=== PATIENT | female | born 1960 | race Caucasian/White ===

== ENCOUNTER → 2017-08-09 | Outpatient (CLI) | payer OTHER, SELFPAY | PROVIDERS: Family Provider Internal Medicine Adolescent Medicine; Visit Provider Nurse Practitioner Obstetrics & Gynecology | DX: Z12.31 Encounter for screening mammogram for malignant neoplasm of breast (principal) | CPT/HCPCS: 77067; G0202 ==

== ENCOUNTER 2017-08-10 10:00 | Outpatient (RCR) | payer OTHER, SELFPAY | END 2017-08-10 23:59 | LOC: PT 10:00 | PROVIDERS: Visit Provider Internal Medicine Adolescent Medicine | DX: M54.32 Sciatica, left side (principal) | CPT/HCPCS: 97012; 97110; 97161 ==

== ENCOUNTER 2017-08-31 10:30 | Outpatient (RCR) | payer OTHER, SELFPAY | END 2017-08-31 10:35 | disposition home or self-care (01) | LOC: PT 10:30 | PROVIDERS: Visit Provider Internal Medicine Adolescent Medicine | DX: M54.32 Sciatica, left side (principal) | CPT/HCPCS: 97012; 97110; 97140 ==

== ENCOUNTER → 2017-10-30 08:22 | Outpatient (POV) | payer OTHER, SELFPAY | PROVIDERS: Family Provider Internal Medicine Adolescent Medicine; PCP Internal Medicine Adolescent Medicine; Visit Provider Physician Assistant | DX: Z00.00 Encounter for general adult medical examination without abnormal findings (principal) ==

== ENCOUNTER → 2017-12-21 08:30 | Outpatient (CLI) | payer OTHER, SELFPAY ==
[2017-12-21 12:46] LABS: Ferritin 25 ng/mL (8-388)
== END ==
PROVIDERS: Family Provider Internal Medicine Adolescent Medicine; PCP Internal Medicine Adolescent Medicine; Visit Provider Physician Assistant
DX: E83.110 Hereditary hemochromatosis (principal)
CPT/HCPCS: 82728

== ENCOUNTER → 2018-08-12 08:22 | Outpatient (CLI) | payer OTHER, SELFPAY ==
[2018-08-12 08:33] LABS: Basophils # 0.1 K/mm3 (0-0.2); Basophils % 0.8 % (0.1-2.0); Eosinophils # 0.5 K/mm3 (0.0-0.4); Eosinophils % 5.3 % (0.1-12.0); Hematocrit 42.2 % (37.0-47.0); Hemoglobin 13.7 g/dL (12.2-16.2); Lymphocytes # 3.3 K/mm3 (0.7-4.5); Lymphocytes % 38.7 % (10-50); Mean Corpuscular HGB Conc 32.6 g/dL (31.8-35.4); Mean Corpuscular Hemoglobin 29.6 pg (27.0-31.2); Mean Corpuscular Volume 90.9 fl (81-99); Monocytes # 0.5 K/mm3 (0.1-1.0); Monocytes % 5.4 % (1.7-9.3); Neutrophils # 4.3 K/mm3 (1.8-7.8); Neutrophils % 49.8 % (37.0-80.0); Platelet Count 299 K/mm3 (142-424); Red Blood Count 4.64 M/mm3 (4.20-5.40); Red Cell Distribution Width 12.7 % (11.5-17.5); White Blood Count 8.6 K/mm3 (4.8-10.8)
[2018-08-12 12:49] LABS: Alanine Aminotransferase 34 U/L (12-78); Albumin Level 3.9 gm/dL (3.4-5.0); Albumin/Globulin Ratio 1.2 (1.1-1.8); Alkaline Phosphatase 114 U/L (46-116); Anion Gap 13.4 mEq/L (5-15); Aspartate Amino Transferase 21 U/L (15-37); Bilirubin,Total 0.4 mg/dL (0.2-1.0); Blood Urea Nitrogen 14 mg/dL (7-18); Calcium 9.1 mg/dL (8.5-10.1); Carbon Dioxide 29 mmol/L (21.0-32.0); Chloride 105 mmol/L (98-107); Chol/HDL Ratio 4.4 (1-3.5); Cholesterol 154 mg/dL (140-200); Creatinine,Serum 0.81 mg/dL (0.55-1.02); Estimated Glomerular Filt Rate 73 ml/min (>60); GFR (African American) 89 ML/MIN (>60); Globulin 3.3 gm/dl (1.3-3.2); Glucose 90 mg/dL (74-106); HDL Cholesterol 35 mg/dL (29-89); LDL Cholesterol 72 mg/dL (0-130); Potassium 4.4 mmoL/L (3.5-5.1); Sodium 143 mmol/L (136-145); Thyroid Stimulating Hormone 0.42 uIU/ml (0.358-3.740); Total Protein,Serum 7.2 gm/dL (6.4-8.2); Triglycerides 236 mg/dL (30-200); VLDL Cholesterol 47 mg/dL (0-40)
== END ==
PROVIDERS: Visit Provider Internal Medicine Adolescent Medicine
DX: I25.10 Atherosclerotic heart disease of native coronary artery without angina pectoris (principal); E78.5 Hyperlipidemia, unspecified; E03.9 Hypothyroidism, unspecified
CPT/HCPCS: 36415; 80053; 80061; 84443; 85025

== ENCOUNTER → 2018-11-02 14:35 | Outpatient (CLI) | payer OTHER, SELFPAY ==
[2018-11-02 14:38] LABS: MANUAL DIFFERENTIAL MANUAL DIFFERENTIAL (MANUAL DIFF)
[2018-11-02 15:41] LABS: Basophils # 0.1 K/mm3 (0-0.2); Basophils % 1.2 % (0.1-2.0); Eosinophils # 0.4 K/mm3 (0.0-0.4); Eosinophils % 7.1 % (0.1-12.0); Hematocrit 41.8 % (37.0-47.0); Hemoglobin 14.3 g/dL (12.2-16.2); Lymphocytes # 1.2 K/mm3 (0.7-4.5); Lymphocytes % 23.8 % (10-50); Mean Corpuscular HGB Conc 34.3 g/dL (31.8-35.4); Mean Corpuscular Volume 90.3 fl (81-99); Monocytes # 0.4 K/mm3 (0.1-1.0); Monocytes % 7.7 % (1.7-9.3); Neutrophils # 3.1 K/mm3 (1.8-7.8); Neutrophils % 60.2 % (37.0-80.0); Platelet Count 235 K/mm3 (142-424); Red Blood Count 4.63 M/mm3 (4.20-5.40); Red Cell Distribution Width 12.7 % (11.5-17.5); White Blood Count 5.2 K/mm3 (4.8-10.8)
[2018-11-02 15:49] LABS: Anion Gap 12.7 mEq/L (5-15); Blood Urea Nitrogen 14 mg/dL (7-18); Calcium 9.5 mg/dL (8.5-10.1); Carbon Dioxide 28 mmol/L (21.0-32.0); Chloride 102 mmol/L (98-107); Creatinine,Serum 0.83 mg/dL (0.55-1.02); Estimated Glomerular Filt Rate 71 ml/min (>60); Free Thyroxine Index 4.1 ug/dL (5.93-13.13); GFR (African American) 86 ML/MIN (>60); Glucose 107 mg/dL (74-106); Potassium 3.7 mmoL/L (3.5-5.1); Sodium 139 mmol/L (136-145); Triiodothryronine (T3) Uptake 37 % (31-39)
[2018-11-02 17:08] LABS: Eosinophils % 7 % (0-3); Lymphocytes % 22 % (10-50); Monocytes % 7 % (2-9); Neutrophils % 64 % (42-76); Total Cells Counted 100
[2018-11-02 17:12] LABS: Platelet Estimate Normal; RBC Morphology Normal
== END ==
PROVIDERS: Visit Provider Urology
DX: R52 Pain, unspecified (principal); R53.83 Other fatigue
CPT/HCPCS: 36415; 80048; 84436; 84443; 84479; 85007; 85014; 85018; 85048; 85049

== ENCOUNTER → 2018-11-19 08:10 | Outpatient (CLI) | payer OTHER, SELFPAY ==
--- NOTE | 2018-11-19 08:13 | MM_ITS ---
MM Dig screening mamm BI w/CAD ORDERING PHYSICIAN : Cristian Mcgarry MD PATIENT AGE: 58 years GENDER: Female COMPARISON: Bilateral digital mammogram studies from: November 2014; July 2016 & 2016. Also April INDICATION: /HISTORY Routine Screening Mammogram . No hormones. No new complaints Previous cyst aspiration bilateral Family history: maternal aunt with breast cancer TECHNIQUE: Standard CC and MLO images were obtained. R2 CAD reviewed. Additional axillary cc view right breast FINDINGS: Moderate breast density with moderate residual fibroglandular-most evident distributed towards upper-outer quadrant and superior breast. Prior films are very helpful in supporting stable appearance of asymmetric areas of relative density . RIGHT BREAST: No new areas of significant concern An area of relative density at the far deep lateral right breast on initial cc view dissipates on the subsequent axillary cc view. Also note similar appearance is been seen on studies dating back to November 2014 & July 2016. MLO view appear stable. Thus overall upper this is a stable area of glandular tissue and can be followed. Follow-up in one year would be emphasized and encouraged . LEFT BREAST: No new areas of significant concern. Today's appearance & pattern changes previous studies. IMPRESSION: No new areas of significant concern. Moderate breast density When compared to multiple previous studies, areas of asymmetry appear stable. Annual Bilateral follow-up in one year should be emphasized and encouraged BI-RADS Category: 2 Benign Finding(s) RECOMMENDED FOLLOW-UP: 1YR 1 YEAR FOLLOW-UP (A letter has been sent to the patient regarding results of the study.)
== END ==
PROVIDERS: PCP Internal Medicine Adolescent Medicine; Visit Provider Nurse Practitioner Obstetrics & Gynecology
DX: Z12.31 Encounter for screening mammogram for malignant neoplasm of breast (principal)
CPT/HCPCS: 77067

== ENCOUNTER → 2019-08-12 09:30 | Outpatient (CLI) | payer OTHER, SELFPAY ==
--- NOTE | 2019-08-12 09:33 | XR_ITS ---
PROCEDURE: XR ANKLE WT BEARING LT MIN 3V CLINICAL INDICATION: pain and swelling COMPARISON: No exams were available for comparison FINDINGS: There is minor diffuse soft tissue swelling just inferior to the lateral malleolus and medial malleolus. However both medial and lateral malleolus appear intact and the ankle mortise is normal. The talus and calcaneus appear intact. IMPRESSION: Minor bilateral soft tissue swelling, no acute fracture seen Dictated by: Dr. Jesus Orta MD 08/12/2019 12:[address] Jesus Orta MD in [place] 08/12/2019 12:26
== END ==
PROVIDERS: PCP Internal Medicine Adolescent Medicine; Visit Provider Podiatrist
DX: M25.572 Pain in left ankle and joints of left foot (principal)
CPT/HCPCS: 73610

== ENCOUNTER → 2019-09-11 07:43 | Outpatient (CLI) | payer OTHER, SELFPAY ==
[2019-09-11 09:12] LABS: Alanine Aminotransferase 32 U/L (12-78); Alkaline Phosphatase 81 U/L (46-116); Anion Gap 10.8 mEq/L (5-15); Aspartate Amino Transferase 23 U/L (15-37); Bilirubin,Direct 0.1 mg/dL (0.0-0.2); Bilirubin,Indirect 0.3 mg/dL (0.0-0.9); Bilirubin,Total 0.4 mg/dL (0.2-1.0); Blood Urea Nitrogen 11 mg/dL (7-18); Calcium 9.1 mg/dL (8.5-10.1); Carbon Dioxide 31 mmol/L (21.0-32.0); Chloride 107 mmol/L (98-107); Chol/HDL Ratio 3.6 (1-3.5); Cholesterol 152 mg/dL (140-200); Creatinine,Serum 0.88 mg/dL (0.55-1.02); Estimated Glomerular Filt Rate 66 ml/min (>60); GFR (African American) 80 ML/MIN (>60); Glucose 98 mg/dL (74-106); HDL Cholesterol 42 mg/dL (29-89); LDL Cholesterol 86 mg/dL (0-130); Potassium 3.8 mmoL/L (3.5-5.1); Sodium 145 mmol/L (136-145); Total Protein,Serum 6.9 gm/dL (6.4-8.2); Triglycerides 120 mg/dL (30-200); VLDL Cholesterol 24 mg/dL (0-40)
== END ==
PROVIDERS: Visit Provider Internal Medicine Cardiovascular Disease
DX: R07.9 Chest pain, unspecified (principal); I25.10 Atherosclerotic heart disease of native coronary artery without angina pectoris; I10 Essential (primary) hypertension; E78.5 Hyperlipidemia, unspecified; Z82.49 Family history of ischemic heart disease and other diseases of the circulatory system; Z95.5 Presence of coronary angioplasty implant and graft
CPT/HCPCS: 36415; 80048; 80061; 80076

== ENCOUNTER → 2020-03-11 07:56 | Outpatient (CLI) | payer OTHER, SELFPAY ==
--- NOTE | 2020-03-11 07:59 | MM_ITS ---
PROCEDURE: MM DIG SCREENING MAMM BI W/CAD Digital Breast Tomosynthesis Included CLINICAL INDICATION: SCREENING There is a history of breast cancer in the patient's maternal aunt. There has been previous cyst aspirations on each breast with benign findings. COMPARISON: [facility] DIG MAMM-SCREEN KATARINA from 08/10/2016 [facility] DIG MAMM-SCREEN KATARINA W/CAD from 08/09/2017 [facility] MM Dig screening mamm BI w/CAD from 11/19/2018 TECHNIQUE: Standard CC and MLO images and 3D Tomosynthesis was obtained. R2 CAD reviewed. FINDINGS: Moderate diffuse fibroglandular elements are seen in the central portions of both breast and the findings are fairly symmetrical bilaterally. There are couple of benign-appearing microcalcifications in each breast. This is no suspicious lesion and no suspicious microcalcifications. IMPRESSION: Moderate breast density with no suspicious lesions seen BI-RAD Category: 2 Benign Finding(s) FOLLOW-UP: 1YR 1 Year Follow-up (A letter has been sent to the patient regarding results of the study.) Dictated by: Dr. Jesus Orta MD 03/12/2020 15:[address] Jesus Orta MD in [place] 03/12/2020 15:44
--- NOTE | 2020-03-11 08:00 | XR_ITS ---
PROCEDURE: XR DEXA AXIAL SKELETON CLINICAL INDICATION: POST MENOPAUSAL COMPARISON: No exams were available for comparison FINDINGS: Right femoral neck density is 0.700 grams/centimeters sq with a T-score of -1.3, osteopenia, Left femoral neck density is 0.642 grams/centimeters sq with T-score -1.9, osteopenia L1-L4 density is 1.070 grams/centimeters sq with T-score 0.2 IMPRESSION: Osteopenia with moderate fracture risk. Treatment advised. Suggest follow-up exam in 2 years Dictated by: Neal Ha MD 03/12/2020 07:39 Electronically signed by Neal Ha MD in [place] 03/12/2020 07:39
== END ==
PROVIDERS: PCP Internal Medicine Adolescent Medicine; Visit Provider Internal Medicine Adolescent Medicine
DX: Z12.31 Encounter for screening mammogram for malignant neoplasm of breast (principal); Z78.0 Asymptomatic menopausal state
CPT/HCPCS: 77063; 77067; 77080

== ENCOUNTER 2020-05-01 11:26 | Day surgery (SDC) | payer OTHER, SELFPAY ==
[2020-05-01] VITALS (10 sets, daily range): BP systolic 102–129; BP diastolic 59–76; PULSE 55–76; RESP 16–20; TEMP 36.6; O2SAT 91–99; BMI 28.3
--- NOTE | 2020-05-01 12:00 | IR_ITS ---
APPROVED REPORT Patient Location: [facility] Intern: MATTHEW Sorenson RT (R) PROCEDURES Left heart catheterization Left ventriculogram Selective coronary angiogram INDICATION Known coronary artery disease, Acute coronary syndrome Informed consent was obtained prior to the procedure. COMPLICATIONS NONE Estimated Blood Loss: LESS THAN 10 ML TECHNIQUE One percent lidocaine used to anesthetize the right anterior aspect of the wrist. The right radial artery was accessed via the Seldinger technique. A 6 Pashto sheath was placed in the right radial artery. 2.5 mg of verapamil, 800 mcg of nitroglycerin, 1mg Lidocaine and 5000 U Heparin were given through the arterial sheath. The trap catheter was also used to perform left heart catheterization, left ventriculogram and selective coronary angiogram. At the end of the procedure the sheath was removed good hemostasis was achieved using Traclet band, patient was transferred to the postop holding area in stable condition. ANGIOGRAPHIC RESULTS The left main artery Normal The left anterior descending artery Has proximal mild 10% luminal irregularities followed by mid vessel stent which is widely patent free of in-stent restenosis with excellent proximal distal transitioning. There is a less than 2 mm first diagonal artery which has an ostial 80% stenosis and a first septal service cashier which has an ostial 70 to 80% stenosis The circumflex artery Is a nondominant vessel and has mild diffuse 10% luminal irregularities with one 30% focal stenosis The right coronary artery Is large dominant with mild proximal mid vessel and distal 10% diffuse luminal irregularities The MONTANO ventriculogram reveals Normal 65% The left ventricular end-diastolic pressure Normal 10 mmHg IMPRESSION Widely patent mid LAD stent as described above Mild diffuse luminal irregularities as described above Severe stenoses and small less than 2 mm first diagonal artery and a moderate sized first septal service cashier both of which are not clinically amenable to intervention and best treated medically Normal ejection fraction Normal left ventricular end-diastolic pressure Identifiable large left upper lobe granuloma on fluoroscopy PLAN 1. Continue with standard therapy for ischemic heart disease 2. Patient symptoms are noncardiac in etiology 3. We will proceed with pulmonary artery CTA for possible PE 4. Follow up x-ray possible CAT scan for granulomatous disease Electronically signed by : Nas Zavaleta, 05/01/2020 12:54:29
[2020-05-01 12:44] LABS: Coronavirus 19 IgG Antibody Negative (Negative); Coronavirus 19 IgM Antibody Negative (Negative)
--- NOTE | 2020-05-01 13:53 | CT_ITS ---
PROCEDURE: CT ANGIO CHEST CLINCIAL INDICATION: abnormal ekg Pulmonary embolus evaluation, follow-up abnormal EKG COMPARISON: No exams were available for comparison TECHNIQUE: IV Contrast: 70ML OPTIRAY 350 Axial images obtained with sagittal and coronal reformats. All CT scans at the facility use one or more dose reduction, viz: automated exposure control, ma/kV adjustment per patient size (including targeted exams where dose is matched to indication, i.e. head), or iterative reconstruction technique. FINDINGS: HEART AND MEDIASTINAL STRUCTURES: There are coronary artery calcifications present. The heart size is normal. No evidence of pericardial effusion. No evidence of aortic aneurysm or dissection. No evidence of pulmonary embolus. The intraventricular septum does not appear bowed. There is narrowing of the left subclavian vein in the infraclavicular region LUNGS AND PLEURAL SPACES: There are atelectatic changes in the lower lobes. No lobar consolidation or collapse. There is evidence of old granulomatous disease. BONY STRUCTURES: No acute bony abnormalities apparent. UPPER ABDOMEN: There is mild thickening of the GE junction which could be due to nondistention or mild esophagitis. There is no significant reflux of contrast into the inferior vena cava. Patch that ADDITIONAL FINDINGS: No other significant abnormalities. IMPRESSION: 1. No evidence of pulmonary embolus. No evidence of aortic aneurysm. 2. Coronary artery calcifications are present. 3. Mild nonspecific thickening of the distal esophagus and at the GE junction which could be due to nondistention or mild esophagitis. Dictated by: Neal Ha MD 05/01/2020 14:55 Neal Ha MD in [facility] 05/01/2020 14:55
== END 2020-05-01 14:54 | disposition hospice, home (50) ==
LOC: CATHLAB 11:27
PROVIDERS: PCP Internal Medicine Adolescent Medicine; Visit Provider Internal Medicine
DX: I25.10 Atherosclerotic heart disease of native coronary artery without angina pectoris (principal); E78.2 Mixed hyperlipidemia; E83.110 Hereditary hemochromatosis; I10 Essential (primary) hypertension; R55 Syncope and collapse; R61 Generalized hyperhidrosis; Z95.5 Presence of coronary angioplasty implant and graft; E03.9 Hypothyroidism, unspecified; Z79.899 Other long term (current) drug therapy; Z79.52 Long term (current) use of systemic steroids; E78.5 Hyperlipidemia, unspecified; Z79.82 Long term (current) use of aspirin
CPT/HCPCS: 71275; 86328; 93458; 99152; C1725; C1769; J1644; J2405; Q9967

== ENCOUNTER → 2020-05-11 15:08 | Outpatient (CLI) | payer OTHER, SELFPAY ==
--- NOTE | 2020-05-11 15:09 | CA_ITS ---
APPROVED REPORT EXAM: Comprehensive 2D, Doppler, and color-flow Echocardiogram Army Ranger: Adia Cameron RDCS Ht: 5 ft 5 in Wt: 175lbs BSA: 1.87 BP: 116/71 mmHg Indications: NEAR SYNCOPE,CP,CAD,HTN,HLP 2D Dimensions LVOT 1.70 cm (M/F) 1.5-2.5 M-Mode Dimensions RVDd 3.52 cm (0.9-2.6) LVDd 4.54 cm (3.5-5.7) LVDs 3.44 cm (3.5-5.7) IVSd 0.59 cm (0.6-1.1) PWd 0.72 cm (0.6-1.1) EF (Teich) 48.30% FS 24.20% EDV (Teich) 94.40 mL ESV (Teich) 48.80 mL LV Diastology E/A Ratio 0.99 Mitral Valve MV A Velocity 54.00 (40-130 cm/s) Left Ventricle Left atrium is mildly enlarged, left ventricle is normal size, mild concentric left ventricular hypertrophy, visually estimated ejection fraction 55% with no regional wall motion abnormality, diastolic parameters are inconclusive. Right Ventricle Right atrium is normal size, right ventricle is mildly enlarged with normal contractility. Aortic Valve Aortic valve is minimally thickened and fibrosed, there is no aortic stenosis or aortic insufficiency. Mitral Valve Mitral valve is grossly normal, there is mild mitral regurgitation. Tricuspid Valve Tricuspid valve grossly normal, there is mild tricuspid regurgitation, tricuspid regurgitation jet velocity is inadequate for calculation of the right ventricular systolic pressure. Pulmonic Valve Pulmonic valve is poorly visualized. Great Vessels Aortic root is normal size. Pericardium No significant pericardial effusion noted. Conclusion 1. Mildly enlarged left atrium, normal left ventricular size, mild concentric left ventricular hypertrophy, visually estimated ejection fraction 55% with no regional wall motion abnormality, diastolic parameters are inconclusive. 2. Qualitatively mildly enlarged right ventricle with normal contractility. 3. Mild mitral and tricuspid regurgitation. 4. No significant pericardial effusion noted. Electronically signed by : Osmany Rojas, 05/11/2020 18:22:35
== END ==
PROVIDERS: PCP Internal Medicine Adolescent Medicine; Visit Provider Internal Medicine Cardiovascular Disease
DX: I25.10 Atherosclerotic heart disease of native coronary artery without angina pectoris (principal); R55 Syncope and collapse; R94.31 Abnormal electrocardiogram [ECG] [EKG]; E78.5 Hyperlipidemia, unspecified; I10 Essential (primary) hypertension; R61 Generalized hyperhidrosis
CPT/HCPCS: 93306

== ENCOUNTER → 2020-08-17 13:33 | Outpatient (CLI) | payer OTHER, SELFPAY ==
[2020-08-17 14:57] LABS: Troponin I < 0.01 ng/ml (0.00-0.034)
== END ==
PROVIDERS: Visit Provider Internal Medicine
DX: R07.9 Chest pain, unspecified (principal)
CPT/HCPCS: 36415; 84484

== ENCOUNTER → 2021-05-26 07:02 | Outpatient (CLI) | payer OTHER, SELFPAY ==
--- NOTE | 2021-05-26 | CA_ITS ---
APPROVED REPORT Exam: Exercise Treadmill Technologist: Shelbi Sesay Ht: 5 ft 5 in Wt: 187 lbs BSA: 1.92 m2 HR: 83 bpm BP: 143/86 mmHg Indications: SOA Medical History Medications: Omeprazole,,,,, Levothyroxine,,,,, Asa,,,,, Metoprolol Succinate,,,,, RoSUVASTATIN,,,,, Alendronate,,,,, Stress Test Details Test: Finesse HR Resting HR: 85 bpm Max Heart Rate (APMHR): 162.099269 bpm Max HR Achieved: 171 bpm Target HR (85% APMHR): 137.799400 bpm % of APMHR: 105.56 Recovery HR: 112 bpm BP Max BP: 180.0/70.0 mmHg Recovery BP: 135.0/84.0 mmHg ECG Resting ECG: Normal sinus rhythm, PVC Clinical Exercise duration: 10:01 min Highest Stage Achieved: Exercise capacity: 12.8 METs Stress ECG Conclusion Patient exercised 10:01 on Finesse Protocol. Test stopped due to shortness of air, fatigue. Symptoms: Dyspnea. No chest pain. Arrhythmias/Ectopy: None ST-T Changes: NS T wave changes in lead III, within normal ST response to exercise. Conclusion: Normal GXT. Myoview images reported separately. Test Summary Stage 3 02:00 14.0 3.4 158 . . . . REST 04:43 0.0 0.0 85 . . . . Stage 1 01:00 10.0 1.7 103 . . . . Stage 1 02:00 10.0 1.7 107 . . . . Stage 1 03:00 10.0 1.7 109 . 170/ 74 . . Stage 2 01:00 12.0 2.5 119 . . . . Stage 2 02:00 12.0 2.5 130 . . . . Stage 2 03:00 12.0 2.5 135 . 180/ 70 . . Stage 3 01:00 14.0 3.4 152 . . . . Stage 3 02:00 14.0 3.4 158 . . . . Stage 3 03:00 14.0 3.4 164 . 176/ 70 . . Stage 4 01:00 16.0 4.2 171 . . . . Stage 4 01:01 16.0 4.2 171 . . . Stop exercise at 10:01 RECOVERY 01:00 0.0 0.0 158 . . . . RECOVERY 02:00 0.0 0.0 136 . . . . RECOVERY 03:00 0.0 0.0 122 . . . . RECOVERY 04:00 0.0 0.0 115 . . . . RECOVERY 05:00 0.0 0.0 109 . 135/ 84 . . RECOVERY 05:26 0.0 0.0 110 . 135/ 84 . . Electronically signed by : Osmany Rojas MD 05/27/2021 10:54:05
--- NOTE | 2021-05-26 07:03 | NM_ITS ---
APPROVED REPORT Exam: Nuclear Stress Test Indication: CAD, 1 STENT, HTN, HYPERLIPIDEMIA, FM HX., SOB Patient Location: Outpatient Stress Tech: Shelbi Sesay [place] Tech:Rachel Amos, ARRT, RT (R)(N) Ht: 5 ft 5 in Wt: 175 lbs Bra Size: 40C HR: 83 bpm BP: 156/78 mmHg BSA: 1.87 m2 BMI: 29.1 History: CAD, 1 STENT, HTN, HYPERLIPIDEMIA, FM HX., SOB Procedure: Patient exercised on Finesse protocol 10:01 minutes and sec, resting heart rate 83 bpm, resting blood pressure 156/78 mmHg, with exercise maximum heart rate achived was 171 bpm which is 106 % of the maximum predicted heart rate and blood pressure was 176/70 mmHg. Test was stopped due to SOB. Patient denied any complaint of chest pain. Patient has good exercise capacity, achieved 12.8 METs of workload on treadmill, the blood pressure response to exercise was Adequate. Electrocardiogram Resting electrocardiogram showed sinus rhythm, with exercise there is less than 1.[address] segment depression noted from the baseline EKG. The EKG portion of the exercise Myoview is negative for ischemia. Cardiac Stress and Resting SPECT Images: Cardiac Stress and Resting SPECT images were obtained using technetium 99m Myoview 32.1 mCi stress and 10.05 mCi at rest. Gated SPECT for analysis of segmental wall motion and calculation of the ejection fraction also done, prone images were also obtained. Cardiac stress and resting SPECT images show uniform myocardial activity without segmental perfusion abnormality, computer derived ejection fraction is 57% with no regional wall motion abnormality, right ventricle is normal size and contractility. Conclusion: 1. The EKG portion of the exercise Myoview is negative for ischemia, patient has good exercise capacity achieved 12.8 mets of workload on treadmill, the blood pressure response to exercise was adequate, there was no exercise-induced chest discomfort, test was stopped due to shortness of breath. 2. No scintigraphic evidence of reversible ischemia seen, computer derived ejection fraction is 57% with no regional wall motion abnormality, right ventricle is normal size and contractility. 3. Normal exercise Myoview study. Electronically signed by : Osmany Rojas MD 05/27/2021 11:01:02
--- NOTE | 2021-05-26 07:19 | CA_ITS ---
APPROVED REPORT EXAM: Comprehensive 2D, Doppler, and color-flow Echocardiogram Wrapper Off: Brittany Reid RT(R) Ht: 5 ft 6 in Wt: 180lbs BSA: 1.91 BP: 122/78 mmHg Indications: dyspnea, ex smoker, GRUBBS, hyperlipidemia, CAD, asthma 2D Dimensions LVOT 2.02 cm (M/F) 1.5-2.5 M-Mode Dimensions RVDd 3.00 cm (0.9-2.6) LA Diam 3.52 cm (1.9-4.0) LVDd 3.93 cm (3.5-5.7) Ao Diam 2.69 cm (2.0-3.7) LVDs 2.83 cm (3.5-5.7) IVSd 0.68 cm (0.6-1.1) PWd 0.57 cm (0.6-1.1) EF (Teich) 54.80% FS 28.00% EDV (Teich) 67.10 mL ESV (Teich) 30.30 mL LV Diastology E Decel Time 117.00 (160-240 msec) E/A Ratio 0.6 MED E' 9.20 (< 7 cm/sec) E'/MED E' Ratio 6.38 (>14) LAT E' 11.00 (<10 cm/sec) E/LAT E' Ratio 5.34 (>14) Mitral Valve MV E Max Oscar. 59.00 (40-130 cm/s) MV A Velocity 95.00 (40-130 cm/s) E/A Ratio 0.62 MV Decel. Time 117.00 (160-240 ms) MV PHT 34.00 ms Left Ventricle Left atrium is qualitatively mildly enlarged, left ventricle is normal size, mild concentric left ventricular hypertrophy, visually estimated ejection fraction 55% with no regional wall motion abnormality, grade 1 diastolic dysfunction seen without tissue Doppler evidence of raise left atrial pressure. Right Ventricle Right atrium and right ventricle are mildly enlarged with normal contractility. Aortic Valve Aortic valve is minimally thickened and fibrosed, there is no aortic stenosis or aortic insufficiency. Mitral Valve Mitral valve is grossly normal, there is trace mitral regurgitation. Tricuspid Valve Tricuspid valve grossly normal, there is trace tricuspid regurgitation, tricuspid regurgitation jet velocity is inadequate for calculation of the right ventricular systolic pressure. Pulmonic Valve Pulmonic valve is poorly visualized. Great Vessels Aortic root is normal size. Inferior vena cava is normal size with normal inspiratory collapse. Pericardium No significant pericardial effusion noted. Conclusion 1. Mild biatrial enlargement, normal left ventricular size, mild concentric left ventricular hypertrophy, visually estimated ejection fraction 55% with no regional wall motion abnormality, grade 1 diastolic dysfunction seen without tissue Doppler evidence of raise left atrial pressure. 2. Mildly enlarged right ventricle with normal contractility. 3. Trace mitral and tricuspid regurgitation. 4. No significant pericardial effusion noted. 5. Inferior vena cava is normal size with normal inspiratory collapse. Electronically signed by : Osmany Rojas MD 05/27/2021 12:13:22
[2021-05-26 07:37] LABS: Basophils # 0.1 K/mm3 (0-0.2); Basophils % 1.1 % (0.1-2.0); Eosinophils # 0.4 K/mm3 (0.0-0.4); Hematocrit 40.3 % (37.0-47.0); Hemoglobin 12.6 g/dL (12.2-16.2); Lymphocytes # 3.1 K/mm3 (0.7-4.5); Lymphocytes % 36.5 % (10-50); Mean Corpuscular HGB Conc 31.3 g/dL (31.8-35.4); Mean Corpuscular Hemoglobin 27.4 pg (27.0-31.2); Mean Corpuscular Volume 87.5 fl (81-99); Mean Platelet Volume 8.1 fl (7.4-10.4); Monocytes # 0.5 K/mm3 (0.1-1.0); Monocytes % 6.2 % (1.7-9.3); Neutrophils # 4.3 K/mm3 (1.8-7.8); Neutrophils % 51.2 % (37.0-80.0); Platelet Count 331 K/mm3 (142-424); Red Cell Distribution Width 14.1 % (11.5-17.5); White Blood Count 8.4 K/mm3 (4.8-10.8)
--- NOTE | 2021-05-26 08:35 | HMH.ITSHM ---
Current Home Medications as stated by this patient Salena Trinh or corporate representative. []ROSUVASTATIN OMEPRAZOLE METOPROLOL LOSARTAN LEVOTHYROXINE LEVOCETIRIZINE IBUPROFEN FLUTICASONE ASA ALENDRONATE FAMOTIDINE
[2021-05-26 08:55] LABS: Chloride 106 mmol/L (98-107)
[2021-05-26 08:56] LABS: Potassium 4.4 mmoL/L (3.5-5.1); Sodium 140 mmol/L (136-145)
[2021-05-26 08:58] LABS: Alanine Aminotransferase 33 U/L (12-78); Anion Gap 11.4 mEq/L (5-15); Aspartate Amino Transferase 39 U/L (14-36); Blood Urea Nitrogen 14 mg/dl (7-17); Carbon Dioxide 27 mmol/L (22.0-30.0); Estimated Glomerular Filt Rate 86 ml/min (>60); GFR (African American) 104 ML/MIN (>60)
[2021-05-26 08:59] LABS: Albumin Level 4.3 g/dl (3.5-5.0); Alkaline Phosphatase 95 U/L (38-126); Bilirubin,Direct 0.3 mg/dl (0.0-0.4); Bilirubin,Total 0.3 mg/dl (0.2-1.3); Calcium 9.5 mg/dl (8.4-10.2); Chol/HDL Ratio 3.4 (1-3.5); Cholesterol 146 mg/dl (140-200); Glucose 124 mg/dl (74-100); HDL Cholesterol 43 mg/dl (40-60); Total Protein,Serum 7.2 g/dl (6.3-8.2); Triglycerides 163 mg/dl (30-150); VLDL Cholesterol 33 mg/dL (0-40)
[2021-05-26 09:10] LABS: Direct LDL Cholesterol 73.18 mg/dL (100-129)
[2021-05-26 09:16] LABS: Free T4 (Free Thyroxine) 1.34 ng/dl (0.78-2.19)
--- NOTE | 2021-05-26 09:25 | MM_ITS ---
PROCEDURE INFORMATION: Exam: MG Bilateral Screening 3D Mammography Exam date and time: 05/26/2021 9:25 AM Age: 60 years old Clinical indication: Screening mammogram TECHNIQUE: Imaging protocol: Bilateral screening tomosynthesis and 2D mammography including computer-aided detection (CAD) when performed. COMPARISON: 03/11/2020, 11/19/2018, 08/09/2017, 08/10/2016 FINDINGS: MAMMOGRAPHY: Breast composition: The breast tissue is heterogeneously dense, which may obscure small masses. Mass: None. Architectural distortion: No new or suspicious architectural distortion. Calcifications: No new or suspicious calcifications are present Asymmetric density: No new or suspicious asymmetric density is present Skin thickening: None. Axillary adenopathy: None. IMPRESSION: No mammographic evidence of malignancy. Recommend annual screening mammography unless otherwise clinically indicated. ASSESSMENT: BI-RADS category 1: Negative
[2021-05-26 09:30] LABS: Thyroid Stimulating Hormone 2.21 uIU/mL (0.465-4.68)
== END ==
PROVIDERS: PCP Internal Medicine Adolescent Medicine; Visit Provider Physician Assistant
DX: R06.00 Dyspnea, unspecified (principal); I25.10 Atherosclerotic heart disease of native coronary artery without angina pectoris; I50.9 Heart failure, unspecified; I11.0 Hypertensive heart disease with heart failure; E78.5 Hyperlipidemia, unspecified; E11.9 Type 2 diabetes mellitus without complications; I63.9 Cerebral infarction, unspecified; Z12.31 Encounter for screening mammogram for malignant neoplasm of breast; Z95.5 Presence of coronary angioplasty implant and graft; Z82.49 Family history of ischemic heart disease and other diseases of the circulatory system; Z87.891 Personal history of nicotine dependence
CPT/HCPCS: 36415; 77063; 77067; 78452; 80048; 80061; 80076; 83880; 84439; 84443; 85025; 93017; 93306; A9502

== ENCOUNTER → 2021-08-23 14:37 | Outpatient (CLI) | payer OTHER, SELFPAY ==
[2021-08-23 16:37] VITALS: PULSE 80
== END ==
PROVIDERS: PCP Internal Medicine Adolescent Medicine; Visit Provider Internal Medicine Adolescent Medicine
DX: R06.09 Other forms of dyspnea (principal)
CPT/HCPCS: 94060; 94640

== ENCOUNTER → 2021-11-11 08:01 | Outpatient (CLI) | payer OTHER, SELFPAY ==
--- NOTE | 2021-11-11 08:15 | US_ITS ---
FINAL REPORT CLINICAL HISTORY: RIGHT UPPER QUADRANT ABD. PAIN FINDINGS: RIGHT UPPER QUADRANT ULTRASOUND: Ultrasound images of right upper quadrant were obtained. Limited images of the pancreas are obscured by bowel gas. There is fatty infiltration of the liver. There is a small amount of sludge in the gallbladder. The common duct measures 2 mm. Limited images of right kidney are unremarkable. IMPRESSION: Fatty liver. Small amount of sludge in the gallbladder. Reviewed, Interpreted and Dictated by Rancho Oliver III, MD Transcribed by Sharmin Luna Authenticated by Rancho Oliver III, MD on 11/11/2021 10:15:33 AM [facility]
[2021-11-11 09:56] LABS: Chloride 105 mmol/L (98-107); Sodium 141 mmol/L (136-145)
[2021-11-11 09:57] LABS: Potassium 4.3 mmoL/L (3.5-5.1)
[2021-11-11 09:59] LABS: Alanine Aminotransferase 28 U/L (12-78); Alkaline Phosphatase 96 U/L (38-126); Anion Gap 11.3 mEq/L (5-15); Aspartate Amino Transferase 38 U/L (14-36); Bilirubin,Total 0.7 mg/dl (0.2-1.3); Blood Urea Nitrogen 16 mg/dl (7-17); Calcium 9.3 mg/dl (8.4-10.2); Carbon Dioxide 29 mmol/L (22.0-30.0); Estimated Glomerular Filt Rate 73 ml/min (>60); GFR (African American) 89 ML/MIN (>60); Glucose 90 mg/dl (74-100); Lipase 66 U/L (23-300)
[2021-11-11 10:00] LABS: Albumin Level 4.6 g/dl (3.5-5.0); Albumin/Globulin Ratio 1.7 (1.1-1.8); Globulin 2.7 g/dL (1.3-3.2); Total Protein,Serum 7.3 g/dl (6.3-8.2)
== END ==
PROVIDERS: PCP Internal Medicine Adolescent Medicine; Visit Provider Internal Medicine Adolescent Medicine
DX: R10.11 Right upper quadrant pain (principal)
CPT/HCPCS: 36415; 76705; 80053; 83690

== ENCOUNTER 2022-01-01 14:25 | Emergency (ER) | payer OTHER, SELFPAY ==
--- NOTE | 2022-01-01 14:56 | HMH.EDUTC ---
[facility] [place] Disposition Clinical Impression: Acute bronchitis Qualifiers: Bronchitis organism: unspecified organism Qualified Code(s): J20.9 - Acute bronchitis, unspecified Disposition: Home, Self-Care Condition on Discharge: Good Instructions: Acute Bronchitis, DI for Acute Bronchitis Additional Instructions: Drink plenty of fluids. Take tylenol or ibuprofen for pain or fever. Take the medications as directed. Follow up with your regular doctor. GO TO THE ER FOR ANY WORSENING SYMPTOMS Don't start the oral steroids until tomorrow, since you had the shot here today. The cough medication (promethazine dm) will make you drowsy, so don't drive or operate heavy machinery after taking it. Prescriptions: methylPREDNISolone [Medrol] 4 mg PO DIRECTED 6 Days #21 packet Transmission Status: Received by [employer] guaiFENesin [Mucinex 600mg tablet] 1 - 2 tab PO BIDP PRN #30 tab PRN Reason: Congestion Transmission Status: Received by [employer] Azithromycin [Z-Travis 250mg Tab*] 250 mg PO UD DOSE PK #6 tab Transmission Status: Received by [employer] Referrals: Bharat Clinton MD [Primary Care Provider] - Medical Decision Making - Medical Records Medical records reviewed: No: I reviewed the patient's medical records. - Bruce Inquiry Pt receiving controlled substance: No Vital Signs: 01/01/22 14:57 01/01/22 16:14 Temperature 98.1 F 98.1 F Temperature Source Oral Pulse Rate 98 H Pulse Rate [Left Radial] 98 H Respiratory Rate 19 19 Blood Pressure 134/85 Blood Pressure [Right Arm] 134/85 Blood Pressure Mean [Right Arm] 101 02 Sat by Pulse Oximetry 99 - Lab Data Lab results reviewed: Yes: I reviewed the patient's lab results. Orders (Tests/Meds): ED MEDICATIONS Discontinued Medications Generic Name Dose Route Start Last Admin Trade Name Freq PRN Reason Stop Dose Admin Ceftriaxone Sodium 1 gm 01/01/22 15:38 01/01/22 15:48 Ceftriaxone 1gm Vial IM 01/01/22 15:39 1 gm ONCE ONE Administration Lidocaine HCl 0 ml 01/01/22 15:38 01/01/22 15:48 Lidocaine 1% 5ml Pf Vial IM 01/01/22 15:39 2 ml ONCE ONE Administration Methylprednisolone Sodium Succinate 125 mg 01/01/22 15:38 01/01/22 15:49 Methylprednisolone Sod Succ 125mg Vial IM 01/01/22 15:39 125 mg ONCE ONE Administration [facility] [place] HPI - General Stated complaint: cough, congestion, weakness Time Seen by Provider: 01/01/22 14:56 - History of Present Illness Provider Complaint: She states that for the past 4 days she has been having a cough and chest congestion. She has history of asthma. She denies any shortness of breath. - Related Data Home Medications Medication Instructions Recorded Confirmed aspirin 81 mg tablet,delayed 81 mg PO DAILY tab 10/09/17 03/25/21 release fluticasone furoate 100 1 inh INHALATION DAILY PRN each 10/09/17 03/25/21 mcg-vilanterol 25 mcg/dose inhalation powder levothyroxine 88 mcg tablet 88 mcg PO DAILY 11/29/18 03/25/21 Famotidine [Acid Clinical Professor] 20 mg PO DAILY 05/01/20 03/25/21 ibuprofen 800 mg-famotidine 26.6 1 tab PO TID PRN 05/01/20 03/25/21 mg tablet levocetirizine 5 mg tablet 5 mg PO DAILY tab 05/01/20 03/25/21 alendronate 35 mg tablet 35 mg PO tab 03/25/21 03/25/21 omeprazole 20 mg capsule,delayed 20 mg PO cap 03/25/21 03/25/21 release Previous Rx's Medication Instructions Recorded diclofenac sodium 1 % topical gel 4 g TOPICAL QID PRN #100 g 10/04/19 rosuvastatin 20 mg tablet See Rx Instructions .ROUTE 08/23/21 .COMPLEX #90 tab losartan 50 mg tablet See Rx Instructions .ROUTE 09/08/21 .COMPLEX #90 tablet metoprolol succinate 25 mg See Rx Instructions .ROUTE 10/20/21 tablet,extended release 24 hr .COMPLEX #90 tab Azithromycin [Z-Travis 250mg Tab*] 250 mg PO UD DOSE PK #6 tab 01/01/22 guaiFENesin [Mucinex 600mg tablet] 1 - 2 tab PO BIDP PRN #30 tab 01/01/22 methylPREDNISolone [Medrol] 4 mg PO DI
[2022-01-01 14:57] VITALS: BP 134/85; PULSE 98; RESP 19; TEMP 36.7; O2SAT 99; BMI 29.0
--- NOTE | 2022-01-01 15:19 | XR_ITS ---
PROCEDURE INFORMATION: Exam: XR Chest Exam date and time: 01/01/2022 3:16 PM Age: 61 years old Clinical indication: Cough and shortness of breath; Additional info: Cough, congestion TECHNIQUE: Imaging protocol: XR of the chest. Views: 2 views. COMPARISON: CT ANGIO CHEST 05/01/2020 2:24 PM FINDINGS: Lungs: Calcified granuloma left upper lobe. Calcified hilar lymph nodes also demonstrated. Pleural spaces: Unremarkable. No pleural effusion. No pneumothorax. Heart/Mediastinum: Unremarkable. No cardiomegaly. Bones/joints: Unremarkable. IMPRESSION: 1. No evidence of acute cardiopulmonary disease. 2. Evidence of prior granulomatous disease.
[2022-01-01 16:14] VITALS: BP 134/85; PULSE 98; RESP 19; TEMP 36.7
== END 2022-01-01 16:15 | disposition home or self-care (01) ==
PROVIDERS: Emergency Provider Nurse Practitioner Family; PCP Internal Medicine Adolescent Medicine
DX: J02.9 Acute pharyngitis, unspecified (principal); R53.1 Weakness; I25.10 Atherosclerotic heart disease of native coronary artery without angina pectoris; E78.5 Hyperlipidemia, unspecified; E03.9 Hypothyroidism, unspecified; J45.909 Unspecified asthma, uncomplicated; Z79.1 Long term (current) use of non-steroidal anti-inflammatories (NSAID); Z79.51 Long term (current) use of inhaled steroids; Z79.52 Long term (current) use of systemic steroids; Z79.82 Long term (current) use of aspirin; Z79.899 Other long term (current) drug therapy; Z88.8 Allergy status to other drugs, medicaments and biological substances; Z82.49 Family history of ischemic heart disease and other diseases of the circulatory system; Z83.438 Family history of other disorder of lipoprotein metabolism and other lipidemia; Z80.9 Family history of malignant neoplasm, unspecified; Z87.891 Personal history of nicotine dependence
CPT/HCPCS: 71046; 96372; 99213; G0463; J0696

== ENCOUNTER → 2022-06-15 08:08 | Outpatient (CLI) | payer OTHER, SELFPAY ==
--- NOTE | 2022-06-15 08:13 | XR_ITS ---
FINAL REPORT TECHNIQUE: Bone densitometry calculations of the lumbar spine and hip were obtained. CLINICAL HISTORY: screening COMPARISON: March 11, 2020 FINDINGS: DEXA BONE DENSITY AXIAL SKELETON Using L1-4, the bone mineral density of the spine is 1.081 g/cm2, corresponding to T-score of 0.3. Previously measured 1.070 g/cm2, corresponding to T-score of 0.2. Using the left hip, the bone mineral density of the femoral neck is 0.652 g/cm2, corresponding to a T-score of -1.8. Previously measured 0.642 g/cm2, corresponding to T-score of -1.9. NOTE: T-score: Standard deviation compared with peak bone mass of young adult mean. *Following the recommendations of the International Society of Bone densitometry, classification of hip BMD is based on the lower of two T-scores; total hip or femoral neck. IMPRESSION: Diminished bone mineral density of the lumbar spine and left hip consistent with osteopenia. FRAX not reported because patient is being treated for osteoporosis. Reviewed, Interpreted and Dictated by Rancho Oliver III, MD Transcribed by Pam Hendrix Authenticated and [facility]
--- NOTE | 2022-06-15 08:13 | MM_ITS ---
PROCEDURE INFORMATION: Exam: MG Bilateral Screening 3D Mammography Exam date and time: 06/15/2022 8:17 AM Age: 61 years old Clinical indication: Screening mammogram TECHNIQUE: Imaging protocol: Bilateral Screening tomosynthesis and 2D mammography including computer-aided detection (CAD) when performed. COMPARISON: 1. MG MM DIG SCREENING MAMM BI W/CAD 05/26/2021 9:31 AM 2. MG MM DIG SCREENING MAMM BI W/CAD 03/11/2020 8:18 AM 3. MG SCBI MM Dig screening mamm BI w/CAD 11/19/2018 8:28 AM 4. MG DMSB DIG MAMM-SCREEN KATARINA W/CAD 08/09/2017 1:08 PM FINDINGS: MAMMOGRAPHY: Breast composition: The breast is heterogeneously dense, which may obscure small masses. Mass: None. Architectural distortion: No new or suspicious architectural distortion. Calcifications: No new or suspicious calcifications are present Asymmetric density: No new or suspicious asymmetric density is present Skin thickening: None. Axillary adenopathy: None. IMPRESSION: No mammographic evidence of malignancy. Recommend annual screening mammography unless otherwise clinically indicated. ASSESSMENT: BI-RADS category 1: Negative
== END ==
PROVIDERS: PCP Internal Medicine Adolescent Medicine; Visit Provider Internal Medicine Adolescent Medicine
DX: Z12.31 Encounter for screening mammogram for malignant neoplasm of breast (principal); Z13.820 Encounter for screening for osteoporosis; Z78.0 Asymptomatic menopausal state
CPT/HCPCS: 77063; 77067; 77080

== ENCOUNTER → 2022-07-15 07:48 | Outpatient (CLI) | payer OTHER, SELFPAY ==
[2022-07-15 08:06] LABS: Basophils # 0.1 K/mm3 (0-0.2); Basophils % 1.6 % (0.1-2.0); Eosinophils # 0.4 K/mm3 (0.0-0.4); Eosinophils % 4.8 % (0.1-12.0); Hematocrit 43.1 % (37.0-47.0); Hemoglobin 14.4 g/dL (12.2-16.2); Lymphocytes # 2.6 K/mm3 (0.7-4.5); Lymphocytes % 35.6 % (10-50); Mean Corpuscular HGB Conc 33.3 g/dL (31.8-35.4); Mean Corpuscular Hemoglobin 30.7 pg (27.0-31.2); Mean Platelet Volume 8.6 fl (7.4-10.4); Monocytes # 0.4 K/mm3 (0.1-1.0); Monocytes % 5.4 % (1.7-9.3); Neutrophils # 3.8 K/mm3 (1.8-7.8); Neutrophils % 52.5 % (37.0-80.0); Platelet Count 267 K/mm3 (142-424); Red Blood Count 4.68 M/mm3 (4.20-5.40); Red Cell Distribution Width 13.4 % (11.5-17.5); White Blood Count 7.3 K/mm3 (4.8-10.8)
[2022-07-15 08:42] LABS: Alanine Aminotransferase 33 U/L (12-78); Albumin Level 4.5 g/dl (3.5-5.0); Albumin/Globulin Ratio 1.7 (1.1-1.8); Alkaline Phosphatase 103 U/L (38-126); Aspartate Amino Transferase 58 U/L (14-36); Bilirubin,Total 0.6 mg/dl (0.2-1.3); Blood Urea Nitrogen 18 mg/dl (7-17); Calcium 9.9 mg/dl (8.4-10.2); Carbon Dioxide 30 mmol/L (22.0-30.0); Chloride 106 mmol/L (98-107); Chol/HDL Ratio 3.3 (1-3.5); Cholesterol 128 mg/dl (140-200); Estimated Glomerular Filt Rate 64 ml/min (>60); GFR (African American) 78 ML/MIN (>60); Globulin 2.6 g/dL (1.3-3.2); Glucose 103 mg/dl (74-100); HDL Cholesterol 39 mg/dl (40-60); Magnesium 1.9 mg/dl (1.6-2.3); Sodium 143 mmol/L (136-145); Total Protein,Serum 7.1 g/dl (6.3-8.2); Triglycerides 137 mg/dl (30-150); VLDL Cholesterol 27 mg/dL (0-40)
[2022-07-15 08:53] LABS: Direct LDL Cholesterol 60.99 mg/dL (100-129)
[2022-07-15 09:14] LABS: Thyroid Stimulating Hormone 1.88 uIU/mL (0.465-4.68)
== END ==
PROVIDERS: PCP Internal Medicine Adolescent Medicine; Visit Provider Internal Medicine Adolescent Medicine
DX: R42 Dizziness and giddiness (principal); I25.10 Atherosclerotic heart disease of native coronary artery without angina pectoris; E78.5 Hyperlipidemia, unspecified; E03.9 Hypothyroidism, unspecified
CPT/HCPCS: 36415; 80053; 80061; 83735; 84443; 85025

== ENCOUNTER → 2023-03-06 07:49 | Outpatient (CLI) | payer OTHER, SELFPAY ==
[2023-03-06 08:04] LABS: Basophils # 0.1 K/mm3 (0-0.2); Basophils % 1.3 % (0.1-2.0); Eosinophils # 0.5 K/mm3 (0.0-0.4); Eosinophils % 6.6 % (0.1-12.0); Hematocrit 42.8 % (37.0-47.0); Hemoglobin 14.1 g/dL (12.2-16.2); Lymphocytes # 2.6 K/mm3 (0.7-4.5); Lymphocytes % 34.7 % (10-50); Mean Corpuscular HGB Conc 32.9 g/dL (31.8-35.4); Mean Corpuscular Hemoglobin 30.7 pg (27.0-31.2); Mean Corpuscular Volume 93.3 fl (81-99); Mean Platelet Volume 8.4 fl (7.4-10.4); Monocytes # 0.5 K/mm3 (0.1-1.0); Monocytes % 6.3 % (1.7-9.3); Neutrophils # 3.8 K/mm3 (1.8-7.8); Platelet Count 252 K/mm3 (142-424); Red Blood Count 4.59 M/mm3 (4.20-5.40); White Blood Count 7.5 K/mm3 (4.8-10.8)
[2023-03-06 09:07] LABS: Chloride 107 mmol/L (98-107); Potassium 4.5 mmoL/L (3.5-5.1); Sodium 143 mmol/L (136-145)
[2023-03-06 09:09] LABS: Alanine Aminotransferase 27 U/L (12-78); Aspartate Amino Transferase 37 U/L (14-36); Blood Urea Nitrogen 18 mg/dl (7-17); Estimated Glomerular Filt Rate 73 ml/min (>60); GFR (African American) 89 ML/MIN (>60)
[2023-03-06 09:10] LABS: Albumin Level 4.3 g/dl (3.5-5.0); Albumin/Globulin Ratio 1.5 (1.1-1.8); Alkaline Phosphatase 96 U/L (38-126); Anion Gap 14.5 mEq/L (5-15); Bilirubin,Total 0.5 mg/dl (0.2-1.3); Calcium 9.9 mg/dl (8.4-10.2); Carbon Dioxide 26 mmol/L (22.0-30.0); Chol/HDL Ratio 3.5 (1-3.5); Cholesterol 152 mg/dl (140-200); Globulin 2.8 g/dL (1.3-3.2); Glucose 106 mg/dl (74-100); HDL Cholesterol 43 mg/dl (40-60); Total Protein,Serum 7.1 g/dl (6.3-8.2); Triglycerides 157 mg/dl (30-150); VLDL Cholesterol 31 mg/dL (0-40)
[2023-03-06 09:17] LABS: 25-OH Vitamin D, Total 39.7 ng/mL (30-100)
[2023-03-06 09:21] LABS: Direct LDL Cholesterol 79.88 mg/dL (100-129)
[2023-03-06 09:40] LABS: Thyroid Stimulating Hormone 2.53 uIU/mL (0.465-4.68)
== END ==
PROVIDERS: PCP Internal Medicine Adolescent Medicine; Visit Provider Internal Medicine Adolescent Medicine
DX: Z00.00 Encounter for general adult medical examination without abnormal findings (principal); I25.10 Atherosclerotic heart disease of native coronary artery without angina pectoris; J45.30 Mild persistent asthma, uncomplicated; E03.9 Hypothyroidism, unspecified; E78.5 Hyperlipidemia, unspecified; M85.89 Other specified disorders of bone density and structure, multiple sites
CPT/HCPCS: 36415; 80053; 80061; 82306; 84443; 85025

== ENCOUNTER 2023-03-23 08:36 | Emergency (ER) | payer OTHER, SELFPAY ==
[2023-03-23 08:37] VITALS: BP 123/79; PULSE 61; RESP 16; TEMP 36.7; O2SAT 100; BMI 29.1
--- NOTE | 2023-03-23 08:45 | EXP.UTC ---
Discharge Plan Disposition Patient Disposition: Home, Self-Care Condition: Good Prescriptions Prescriptions: New benzonatate 100 mg capsule 100 mg PO TID PRN (Reason: cough) Qty: 30 0RF methylprednisolone [Medrol (Travis)] 4 mg tablets,dose pack See Rx Instructions .Route .COMPLEX 6 Days Qty: 21 0RF Rx Instructions: taper pack; amoxicillin-pot clavulanate 875-125 mg Tablet 1 tab PO Q12H Qty: 20 0RF No Action alendronate 35 mg tablet 35 mg PO omeprazole 20 mg capsule,delayed release(DR/EC) 20 mg PO Patient Comments: TAKE ONE CAPSULE BY MOUTH EVERY DAY aspirin 81 mg tablet,delayed release (DR/EC) 81 mg PO DAILY fluticasone furoate-vilanterol [Breo Ellipta] 100-25 mcg/dose blister with device 1 inh INHALATION DAILY PRN (Reason: Allergic Reaction) Duexis 800-26.6 mg tablet 1 tab PO TID PRN (Reason: PAIN) levothyroxine [Synthroid] 88 mcg tablet 88 mcg PO DAILY levocetirizine 5 mg tablet 5 mg PO DAILY Patient Comments: TAKE ONE TABLET BY MOUTH EVERY DAY IN THE EVENING diclofenac sodium 1 % gel 4 g TOPICAL QID PRN (Reason: pain ) Qty: 100 2RF Rx Instructions: apply to single, ankle, foot; for foot includes sole/toes/top of foot metoprolol succinate 25 mg tablet extended release 24 hr See Rx Instructions .ROUTE .COMPLEX Qty: 90 3RF Dose Instruction: TAKE ONE TABLET BY MOUTH EVERY DAY FOR high blood pressure Rx Instructions: TAKE ONE TABLET BY MOUTH EVERY DAY FOR high blood pressure prednisone 20 mg tablet 40 mg PO DAILY 5 Days Qty: 10 0RF losartan 50 mg tablet See Rx Instructions .ROUTE .COMPLEX Qty: 90 3RF Dose Instruction: TAKE ONE TABLET BY MOUTH EVERY DAY Rx Instructions: TAKE ONE TABLET BY MOUTH EVERY DAY rosuvastatin 20 mg tablet See Rx Instructions .ROUTE .COMPLEX Qty: 90 3RF Dose Instruction: TAKE ONE TABLET BY MOUTH EVERY DAY Rx Instructions: TAKE ONE TABLET BY MOUTH EVERY DAY azithromycin 250 MG tablet 250 mg PO UD DOSE PK Qty: 6 0RF Rx Instructions: Take two (2) tablets today, then one (1) tablet days #2 thru #5 methylprednisolone 4 MG tablets,dose pack 4 mg PO DIRECTED 6 Days Qty: 21 0RF guaifenesin 600 MG tablet extended release 12hr 1 - 2 tab PO BIDP PRN (Reason: Congestion) Qty: 30 0RF famotidine 20 MG tablet 20 mg PO DAILY Referrals Follow up/Referrals: Bharat Clinton MD [Primary Care Provider] - See instructions Activity Restrictions/Add. Instructions Additional Instructions/Restrictions: Start antibiotic today. Be sure to complete entire prescription even if feeling better Monitor temp. Tylenol every 4 hours as needed and / or ibuprofen every 6 hours as needed ( As long as your primary care physician has told you that it ok to take both. For fever/aches/pains ER if no less than 101 despite Tylenol or Motrin Humidifier/vaporizer or hot steamy shower Mucinex during the day for your cough and cough suppressant only at night. Be sure to drink lots of water. *Tessalon Perles will not cause drowsiness but use at bedtime to help stop cough so that you may get some rest. *Start steroid today. Helps with inflammation therefore, cough and wheezing. Follow directions on the package. Reviewed side effects. Patient reports taking them before. Follow up IMMEDIATELY for new or worsening of symptoms OR no noticeable improvement over the next 48-72 hours. 911 immediately for any life threatening symptoms such as chest pain or difficulty breathing Clinical Impressions Clinical Impression: Sinusitis Qualifiers: Sinusitis location: unspecified location Chronicity: unspecified Qualified Code(s): J32.9 - Chronic sinusitis, unspecified Instructions Patient Instructions: DI for Sinusitis, Sinusitis Discharge ED Provider: Salena Lowe [facility] General Stated complaint: head
[2023-03-23 08:56] VITALS: BP 123/79; PULSE 61; RESP 16; TEMP 36.7; O2SAT 100
== END 2023-03-23 08:57 | disposition home or self-care (01) ==
PROVIDERS: Emergency Provider Nurse Practitioner; PCP Internal Medicine Adolescent Medicine
DX: J01.90 Acute sinusitis, unspecified (principal); Z87.891 Personal history of nicotine dependence
CPT/HCPCS: 99212; 99214; G0463

== ENCOUNTER → 2023-07-11 07:12 | Outpatient (CLI) | payer OTHER, SELFPAY ==
--- NOTE | 2023-07-11 07:21 | NM_ITS ---
APPROVED REPORT Exam: Nuclear Stress Test Indication: CAD, 1 STENT, HTN, HYPERLIPIDEMIA, FM HX, SOB, PALPITATIONS Patient Location: Outpatient Stress Tech: Raven Rucker [place] Tech:Valerie Santa JEANCarolyn RT (R)(N)(M) Ht: 5 ft 5 in Wt: 175 lbs Bra Size: C HR: 60 bpm BP: 148/73 mmHg BSA: 1.87 m2 Rhythm: NSR TID: 1.16 BMI: 29.1 History: CAD, 1 STENT, HTN, HYPERLIPIDEMIA, FM HX, SOB, PALPITATIONS Procedure: Patient exercised on Finesse protocol 9:45 minutes and sec, resting heart rate 60 bpm, resting blood pressure 148/73 mmHg, with exercise maximum heart rate achived was 164 bpm which is 102 % of the maximum predicted heart rate and blood pressure was 180/86 mmHg. Test was stopped due to FATIGUE. Patient denied any complaint of chest pain. Patient has Average exercise capacity, achieved 10.1 METs of workload on treadmill, the blood pressure response to exercise was Normal. Cardiac Stress and Resting SPECT Images: Cardiac Stress and Resting SPECT images were obtained using technetium 99m Myoview 30.8 mCi stress and 10.15 mCi at rest. Resting and stress imaging in supine and prone positions demonstrate no evidence of fixed or reversible perfusion defects. Gated imaging demonstrates normal global and regional LV systolic function. LVEF is calculated at 63%. Conclusion: No evidence of fixed or reversible perfusion defects. Gated imaging demonstrates normal global and regional LV systolic function. LVEF is calculated at 63%. Electronically signed by : Mariajose Padilla MD 07/11/2023 23:29:13
[2023-07-11 07:29] LABS: Basophils # 0.1 K/mm3 (0-0.2); Basophils % 1.3 % (0.1-2.0); Eosinophils # 0.3 K/mm3 (0.0-0.4); Eosinophils % 4.3 % (0.1-12.0); Hematocrit 42.5 % (37.0-47.0); Hemoglobin 14.1 g/dL (12.2-16.2); Lymphocytes # 3.1 K/mm3 (0.7-4.5); Lymphocytes % 41.7 % (10-50); Mean Corpuscular HGB Conc 33.2 g/dL (31.8-35.4); Mean Corpuscular Hemoglobin 31.4 pg (27.0-31.2); Mean Corpuscular Volume 94.6 fl (81-99); Mean Platelet Volume 8.1 fl (7.4-10.4); Monocytes # 0.4 K/mm3 (0.1-1.0); Monocytes % 5.2 % (1.7-9.3); Neutrophils # 3.6 K/mm3 (1.8-7.8); Neutrophils % 47.6 % (37.0-80.0); Platelet Count 249 K/mm3 (142-424); White Blood Count 7.6 K/mm3 (4.8-10.8)
[2023-07-11 08:23] LABS: Alanine Aminotransferase 34 U/L (12-78); Albumin Level 4.7 g/dl (3.5-5.0); Alkaline Phosphatase 79 U/L (38-126); Aspartate Amino Transferase 40 U/L (14-36); Bilirubin,Indirect 0.8 mg/dL (0.0-0.9); Bilirubin,Total 0.8 mg/dl (0.2-1.3); Bilirubin,Unconjugated 0.8 mg/dL (0.0-1.1); Blood Urea Nitrogen 16 mg/dl (7-17); Calcium 9.4 mg/dl (8.4-10.2); Carbon Dioxide 29 mmol/L (22.0-30.0); Chloride 103 mmol/L (98-107); Cholesterol 158 mg/dl (140-200); Estimated Glomerular Filt Rate 73 ml/min (>60); GFR (African American) 89 ML/MIN (>60); Glucose 106 mg/dl (74-100); Magnesium 1.9 mg/dl (1.6-2.3); Total Protein,Serum 7.4 g/dl (6.3-8.2); Triglycerides 191 mg/dl (30-150); VLDL Cholesterol 38 mg/dL (0-40)
[2023-07-11 08:24] LABS: Hemoglobin A1C 5.9 % (4.0-6.0)
[2023-07-11 08:25] LABS: Anion Gap 11.6 mEq/L (5-15); Chol/HDL Ratio 4.8 (1-3.5); HDL Cholesterol 33 mg/dl (40-60); Potassium 3.6 mmoL/L (3.5-5.1); Sodium 140 mmol/L (136-145)
[2023-07-11 08:39] LABS: Free T4 (Free Thyroxine) 1.37 ng/dl (0.78-2.19)
--- NOTE | 2023-07-11 08:50 | CA_ITS ---
APPROVED REPORT EXAM: Comprehensive 2D, Doppler, and color-flow Echocardiogram Deputy Jailer: Brittany Reid RT(R) Ht: 5 ft 5 in Wt: 175lbs BSA: 1.87 BP: 140/68 mmHg Indications: angina, CAD, hyperlipidemia, abn EKG, near syncope, DD, hemachromastosis. 2D Dimensions LVOT 1.87 cm (M/F) 1.5-2.5 LVEF (Ray's) 44.30 % F: 54 - 74 LV Volume 94.10 mL F: 46 - 106 LV Volume Index 50.32 mL/m2 F: 29 - 61 LA Volume 38.70 mL LA Volume Index 20.70 mL/m2 (M/F) 16-34 M-Mode Dimensions RVDd 2.57 cm (0.9-2.6) LA Diam 3.23 cm (1.9-4.0) LVDd 4.25 cm (3.5-5.7) Ao Diam 2.55 cm (2.0-3.7) LVDs 3.14 cm (3.5-5.7) IVSd 0.86 cm (0.6-1.1) PWd 0.86 cm (0.6-1.1) EF (Teich) 51.60% FS 26.10% EDV (Teich) 80.80 mL TAPSE 1.96 (<1.7) ESV (Teich) 39.10 mL LV Diastology E Decel Time 210.00 (160-240 msec) E/A Ratio 1.1 MED E' 8.60 (< 7 cm/sec) E'/MED E' Ratio 9.08 (>14) LAT E' 11.20 (<10 cm/sec) E/LAT E' Ratio 6.97 (>14) Mitral Valve MV E Max Oscar. 78.00 (40-130 cm/s) MV A Velocity 70.00 (40-130 cm/s) E/A Ratio 1.12 MV Decel. Time 210.00 (160-240 ms) MV PHT 62.00 ms Left Ventricle The left ventricle is normal size. The left ventricular systolic function is normal. The left ventricular ejection fraction is within the normal range. There is normal left ventricular wall thickness. There is normal LV segmental wall motion. The left ventricular diastolic function is normal. LVEF is 60%. Right Ventricle The right ventricle is normal size. The right ventricular systolic function is normal. Atria The left atrium size is normal. The right atrium size is normal. There is no Doppler of interatrial shunt evidence of interatrial shunt. Aortic Valve The aortic valve opens well. There is no aortic valvular stenosis. No aortic regurgitation is present. Mitral Valve The mitral valve is normal in structure. Trace mitral regurgitation. Tricuspid Valve The tricuspid valve leaflets are thin and pliable. Trace tricuspid regurgitation. There is insufficient TR jet to estimate RVSP. Pulmonic Valve The pulmonary valve is normal in structure. Trace pulmonic regurgitation. Great Vessels The aortic root is normal in size. The ascending aorta is normal in size. IVC is normal in size and collapses >50% with inspiration. Pericardium There is no pericardial effusion. Other Information Study Quality: Adequate Conclusion Normal biventricular systolic function. No significant valvular stenosis or regurgitation. Electronically signed by : Mariajose Padilla MD 07/11/2023 23:24:24
[2023-07-11 08:54] LABS: Thyroid Stimulating Hormone 6.32 uIU/mL (0.465-4.68)
--- NOTE | 2023-07-11 10:05 | CA_ITS ---
APPROVED REPORT Exam: Exercise Treadmill Technologist: Raven Rucker Ht: 5 ft 5 in Wt: 181 lbs BSA: 1.90 m2 HR: 60 bpm BP: 148/73 mmHg Rhythm: NSR Indications: Chest pain Medical History Medications: Omeprazole,,,,, Levothyroxine,,,,, Aspirin,,,,, Metoprolol,,,,, Losartan,,,,, Famotidine,,,,, Levocetirizine,,,,, BREo Eliipta,,,,, RoSUVASTATIN,,,,, Alendronate,,,,, Duexis,,,,, Stress Test Details Test: Finesse HR Resting HR: 80 bpm Max Heart Rate (APMHR): 160 bpm Max HR Achieved: 164 bpm Target HR (85% APMHR): 136 bpm % of APMHR: 103 Recovery HR: 85 bpm HR response to stress: Normal HR response to stress BP Resting BP: 148.0/73.0 mmHg Max BP: 180.0/86.0 mmHg Recovery BP: 143.0/87.0 mmHg BP response to stress: Normal blood pressure response to stress. ECG Resting ECG: Sinus rhythm normal sinus rhythm, nonspecific T wave changes Stress EC.[address] depression Arrhythmia: None Recovery ECG: Return to baseline within 3 minutes of recovery Recovery Arrhythmia: None none Clinical Exercise duration: 09:45 min Highest Stage Achieved: Exercise capacity: 10.1 METs Overall Exercise Capacity for Age: Average Stress ECG Conclusion The patient was able to exercise for a total of 9 minutes, 45 seconds. She achieved a total of 10.1 METS. She has average exercise capacity compared to age and sex matched peers. She has normal HR and BP response to exercise. Symptoms: Dyspnea Arrhythmias/Ectopy: None ST-T Changes: 0.[address] depression Conclusion: Average exercise capacity. Normal EKG response to exercise. Myoview images reported separately. Test Summary REST . . . . . . . Sitting REST . . . . . . . Standing REST 02:40 0.0 0.0 80 . 148/ 73 . . Stage 1 01:00 10.0 1.7 96 . . . . Stage 1 02:00 10.0 1.7 98 . . . . Stage 1 03:00 10.0 1.7 97 . 130/ 78 . . Stage 2 01:00 12.0 2.5 113 . . . . Stage 2 02:00 12.0 2.5 119 . . . . Stage 2 03:00 12.0 2.5 124 . 144/ 80 . . Stage 3 01:00 14.0 3.4 139 . . . . Stage 3 02:00 14.0 3.4 153 . . . . Stage 3 . . . . . . . Myoview Injected Stage 3 03:00 14.0 3.4 158 . 168/ 80 . . Stage 4 00:45 16.0 4.2 163 . . . Stop exercise at 09:45 RECOVERY 01:00 0.0 0.0 137 . 180/ 86 . . RECOVERY 02:00 0.0 0.0 123 . 180/ 86 . . RECOVERY 03:00 0.0 0.0 104 . 167/ 78 . . RECOVERY 04:00 0.0 0.0 92 . 153/ 80 . . RECOVERY 05:00 0.0 0.0 93 . 147/ 69 . . RECOVERY 06:00 0.0 0.0 95 . 151/ 85 . . RECOVERY 06:50 0.0 0.0 87 . 143/ 87 . . Electronically signed by : Mariajose Padilla MD 07/11/2023 23:27:31
--- NOTE | 2023-07-11 14:19 | MM_ITS ---
PROCEDURE INFORMATION: Exam: MG Bilateral Screening 3D Mammography Exam date and time: 07/11/2023 2:05 PM Age: 62 years old Clinical indication: Screening examination TECHNIQUE: Imaging protocol: Bilateral Screening tomosynthesis and 2D mammography including computer-aided detection (CAD) when performed. COMPARISON: 1. MG MM DIG SCREENING MAMM BI W/CAD 06/15/2022 8:17 AM 2. MG MM DIG SCREENING MAMM BI W/CAD 05/26/2021 9:31 AM FINDINGS: MAMMOGRAPHY: Breast composition: The breasts are heterogeneously dense, which may obscure small masses. Mass: None. Architectural distortion: None. Calcifications: No suspicious calcifications. Asymmetric density: None. Skin thickening: None. Axillary adenopathy: None. IMPRESSION: No mammographic evidence of malignancy. Annual screening is recommended unless otherwise clinically indicated. ASSESSMENT: BI-RADS Category 1: Negative
== END ==
PROVIDERS: PCP Internal Medicine Adolescent Medicine; Visit Provider Internal Medicine
DX: Z12.31 Encounter for screening mammogram for malignant neoplasm of breast (principal); I20.89 Other forms of angina pectoris; I10 Essential (primary) hypertension; E78.2 Mixed hyperlipidemia; Z95.5 Presence of coronary angioplasty implant and graft; Z79.899 Other long term (current) drug therapy
CPT/HCPCS: 36415; 77063; 77067; 78452; 80048; 80061; 80076; 83036; 83735; 84439; 84443; 85025; 93017; 93018; 93306; A9502

== ENCOUNTER 2023-11-15 10:59 | Outpatient (CLI) | payer OTHER, SELFPAY ==
[2023-11-15 11:24] LABS: Basophils # 0.1 K/mm3 (0-0.2); Basophils % 1.5 % (0.1-2.0); Eosinophils # 0.5 K/mm3 (0.0-0.4); Eosinophils % 4.8 % (0.1-12.0); Hemoglobin 14.9 g/dL (12.2-16.2); Lymphocytes # 2.6 K/mm3 (0.7-4.5); Lymphocytes % 27.1 % (10-50); Mean Corpuscular HGB Conc 33.1 g/dL (31.8-35.4); Mean Corpuscular Hemoglobin 31.8 pg (27.0-31.2); Mean Corpuscular Volume 96.2 fl (81-99); Monocytes # 0.4 K/mm3 (0.1-1.0); Monocytes % 4.6 % (1.7-9.3); Neutrophils # 5.8 K/mm3 (1.8-7.8); Platelet Count 245 K/mm3 (142-424); Red Blood Count 4.68 M/mm3 (4.20-5.40); White Blood Count 9.4 K/mm3 (4.8-10.8)
[2023-11-15 11:53] LABS: Hemoglobin A1C 6.1 % (4.0-6.0)
[2023-11-15 12:16] LABS: Free T4 (Free Thyroxine) 1.25 ng/dl (0.78-2.19)
[2023-11-15 12:26] LABS: Alanine Aminotransferase 30 U/L (12-78); Albumin Level 4.6 g/dl (3.5-5.0); Alkaline Phosphatase 79 U/L (38-126); Aspartate Amino Transferase 42 U/L (14-36); Bilirubin,Direct 0.1 mg/dl (0.0-0.4); Bilirubin,Indirect 0.5 mg/dL (0.0-0.9); Bilirubin,Total 0.6 mg/dl (0.2-1.3); Bilirubin,Unconjugated 0.5 mg/dL (0.0-1.1); Blood Urea Nitrogen 16 mg/dl (7-17); Calcium 9.9 mg/dl (8.4-10.2); Carbon Dioxide 28 mmol/L (22.0-30.0); Chloride 108 mmol/L (98-107); Chol/HDL Ratio 4.6 (1-3.5); Cholesterol 173 mg/dl (140-200); Estimated Glomerular Filt Rate 56 ml/min (>60); GFR (African American) 68 ML/MIN (>60); Glucose 99 mg/dl (74-100); HDL Cholesterol 38 mg/dl (40-60); Sodium 143 mmol/L (136-145); Total Protein,Serum 7.3 g/dl (6.3-8.2); Triglycerides 286 mg/dl (30-150); VLDL Cholesterol 57 mg/dL (0-40)
[2023-11-15 12:30] LABS: Thyroid Stimulating Hormone 2.53 uIU/mL (0.465-4.68)
[2023-11-15 12:36] LABS: Direct LDL Cholesterol 79.74 mg/dL (100-129)
[2023-11-15 14:44] LABS: Ferritin 14.4 ng/ml (11.1-264)
== END 2023-11-15 23:59 ==
PROVIDERS: PCP Internal Medicine Adolescent Medicine; Visit Provider Internal Medicine
DX: R06.00 Dyspnea, unspecified (principal); I25.10 Atherosclerotic heart disease of native coronary artery without angina pectoris; I10 Essential (primary) hypertension; E78.2 Mixed hyperlipidemia; E83.110 Hereditary hemochromatosis; I11.9 Hypertensive heart disease without heart failure; K21.9 Gastro-esophageal reflux disease without esophagitis; E11.9 Type 2 diabetes mellitus without complications; Z82.49 Family history of ischemic heart disease and other diseases of the circulatory system; Z95.5 Presence of coronary angioplasty implant and graft; Z83.3 Family history of diabetes mellitus
CPT/HCPCS: 36415; 80048; 80061; 80076; 82728; 83036; 83735; 84439; 84443; 85025

== ENCOUNTER 2024-01-02 15:05 | Outpatient (POV) | payer OTHER, SELFPAY | END 2024-01-02 23:59 | disposition home or self-care (01) | LOC: SC 15:06 | PROVIDERS: PCP Internal Medicine Adolescent Medicine; Visit Provider Dermatology | DX: Z00.00 Encounter for general adult medical examination without abnormal findings (principal) ==

== ENCOUNTER 2024-04-23 12:38 | Outpatient (CLI) | payer OTHER, SELFPAY ==
[2024-04-23 13:15] LABS: Basophils # 0.1 K/mm3 (0-0.2); Basophils % 1.1 % (0.1-2.0); Eosinophils # 0.3 K/mm3 (0.0-0.4); Eosinophils % 2.9 % (0.1-12.0); Hematocrit 41.4 % (37.0-47.0); Hemoglobin 13.1 g/dL (12.2-16.2); Lymphocytes # 2.9 K/mm3 (0.7-4.5); Lymphocytes % 34.7 % (10-50); Mean Corpuscular HGB Conc 31.6 g/dL (31.8-35.4); Mean Corpuscular Hemoglobin 29.6 pg (27.0-31.2); Mean Corpuscular Volume 93.9 fl (81-99); Mean Platelet Volume 8.5 fl (7.4-10.4); Monocytes # 0.5 K/mm3 (0.1-1.0); Monocytes % 5.5 % (1.7-9.3); Neutrophils # 4.7 K/mm3 (1.8-7.8); Neutrophils % 55.7 % (37.0-80.0); Platelet Count 337 K/mm3 (142-424); Red Cell Distribution Width 13.7 % (11.5-17.5); White Blood Count 8.4 K/mm3 (4.8-10.8)
[2024-04-23 14:08] LABS: Alanine Aminotransferase 27 U/L (12-78); Albumin Level 4.1 g/dl (3.5-5.0); Alkaline Phosphatase 64 U/L (38-126); Anion Gap 11.5 mEq/L (5-15); Aspartate Amino Transferase 37 U/L (14-36); Bilirubin,Direct 0.2 mg/dl (0.0-0.4); Bilirubin,Indirect 0.5 mg/dL (0.0-0.9); Bilirubin,Total 0.7 mg/dl (0.2-1.3); Bilirubin,Unconjugated 0.5 mg/dL (0.0-1.1); Blood Urea Nitrogen 18 mg/dl (7-17); Calcium 9.8 mg/dl (8.4-10.2); Carbon Dioxide 27 mmol/L (22.0-30.0); Chloride 106 mmol/L (98-107); Chol/HDL Ratio 3.8 (1-3.5); Cholesterol 150 mg/dl (140-200); Estimated Glomerular Filt Rate 73 ml/min (>60); GFR (African American) 88 ML/MIN (>60); Glucose 99 mg/dl (74-100); HDL Cholesterol 39 mg/dl (40-60); Magnesium 1.8 mg/dl (1.6-2.3); Potassium 4.5 mmoL/L (3.5-5.1); Sodium 140 mmol/L (136-145); Total Protein,Serum 6.9 g/dl (6.3-8.2); Triglycerides 160 mg/dl (30-150); VLDL Cholesterol 32 mg/dL (0-40)
[2024-04-23 14:19] LABS: Direct LDL Cholesterol 70.66 mg/dL (100-129)
[2024-04-23 14:24] LABS: Free T4 (Free Thyroxine) 1.46 ng/dl (0.78-2.19)
[2024-04-23 14:39] LABS: Thyroid Stimulating Hormone 0.34 uIU/mL (0.465-4.68)
[2024-04-23 15:09] LABS: Hemoglobin A1C 5.7 % (4.0-6.0)
[2024-04-23 15:14] LABS: Vitamin B12 424 pg/mL (239-931)
[2024-04-23 15:18] LABS: Folate > 20.00 ng/mL
[2024-05-06 09:15] LABS: 1,25 Dihydroxy Vitamin D 54 pg/mL (.); 1,25-Dihydroxy, Vitamin D-2 <10 pg/mL (.); 1,25-Dihydroxy, Vitamin D-3 52 pg/mL (.)
== END 2024-04-23 23:59 | disposition home or self-care (01) ==
LOC: LAB 12:39
PROVIDERS: PCP Internal Medicine Adolescent Medicine; Visit Provider Physician Assistant
DX: I11.9 Hypertensive heart disease without heart failure (principal); Z83.3 Family history of diabetes mellitus; R94.31 Abnormal electrocardiogram [ECG] [EKG]; R00.2 Palpitations; I49.3 Ventricular premature depolarization; I25.10 Atherosclerotic heart disease of native coronary artery without angina pectoris; I10 Essential (primary) hypertension; E78.2 Mixed hyperlipidemia; Z95.5 Presence of coronary angioplasty implant and graft; R06.09 Other forms of dyspnea; R06.00 Dyspnea, unspecified; K21.9 Gastro-esophageal reflux disease without esophagitis; E11.9 Type 2 diabetes mellitus without complications; Z79.85 Long-term (current) use of injectable non-insulin antidiabetic drugs
CPT/HCPCS: 80048; 80061; 80076; 82607; 82652; 82746; 83036; 83735; 84439; 84443; 85025

== ENCOUNTER 2024-04-26 07:01 | Outpatient (CLI) | payer OTHER, SELFPAY ==
--- NOTE | 2024-04-26 07:05 | CA_ITS ---
APPROVED REPORT Exam: Exercise Treadmill Technologist: Carley Briones, Ht: 5 ft 5 in Wt: 166 lbs BSA: 1.83 m2 HR: 77 bpm BP: 135/78 mmHg Rhythm: NSR, PVCs Indications: Palpitations, CAD Medical History Medical History: HTN Medications: Omeprazole,,,,, Aspirin,,,,, Metoprolol,,,,, Synthroid,,,,, Crestor,,,,, Famotidine,,,,, [id number],,,,, Levocetirizine,,,,, BREo,,,,, Alendronate,,,,, Ozempic,,,,, Allergies: Levofloxacin Cardiac Risk Factors: HTN, FHX of CAD Stress Test Details Test: Finesse HR Resting HR: 82 bpm Max Heart Rate (APMHR): 159 bpm Max HR Achieved: 166 bpm Target HR (85% APMHR): 135 bpm % of APMHR: 104 Recovery HR: 103 bpm HR response to stress: Normal HR response to stress BP Resting BP: 135.0/78 mmHg Max BP: 182/81 mmHg Recovery BP: 132.0/79.0 mmHg BP response to stress: Normal blood pressure response to stress. ECG Resting ECG: NSR, PVCs Stress EC.[address] depression Arrhythmia: PVCs Recovery ECG: Return to baseline within 3 minutes of recovery Recovery Arrhythmia: PVCs Clinical Exercise duration: 10:15 min Highest Stage Achieved: Exercise capacity: 12.8 METs Overall Exercise Capacity for Age: Good Stress ECG Conclusion Pt exercised 10:15 on Finesse protocol Max HR: 166 % of PM: 104% Max BP: 182/81 Mets: 12.8 Test stopped due to: soa and fatigue No CP Ectopy: Frequent PVCs Normal ST response to exercise Conclusion: Good exercise capacity. Normal GXT Myoview images reported separately Test Summary REST . . . . . . . Standing REST 04:24 0.0 0.0 82 . 135/ 78 . . Stage 1 01:00 10.0 1.7 97 . . . . Stage 1 02:00 10.0 1.7 106 . . . . Stage 1 03:00 10.0 1.7 113 . 142/ 64 . . Stage 2 01:00 12.0 2.5 120 . . . . Stage 2 02:00 12.0 2.5 126 . . . . Stage 2 03:00 12.0 2.5 130 . 142/ 64 . . Stage 3 01:00 14.0 3.4 133 . . . . Stage 3 02:00 14.0 3.4 147 . . . . Stage 3 03:00 14.0 3.4 155 . 156/ 60 . . Stage 4 01:00 16.0 4.2 163 . . . . Stage 4 01:15 16.0 4.2 166 . . . Stop exercise at 10:15 RECOVERY 01:00 0.0 0.0 144 . . . . RECOVERY 02:00 0.0 0.0 127 . 182/ 81 . . RECOVERY 03:00 0.0 0.0 116 . 168/ 83 . . RECOVERY 04:00 0.0 0.0 109 . 165/ 68 . . RECOVERY 05:00 0.0 0.0 103 . 165/ 68 . . RECOVERY 06:00 0.0 0.0 100 . 132/ 79 . . RECOVERY 06:07 0.0 0.0 103 . 132/ 79 . . Electronically signed by : Mariajose Padilla MD 04/26/2024 11:17:32
--- NOTE | 2024-04-26 07:05 | NM_ITS ---
APPROVED REPORT Exam: Nuclear Stress Test Indication: palpitations Patient Location: Outpatient Stress Tech: Carley Briones [place] Tech:Manuela BoxMATTHEW RT(R)(N) Ht: 5 ft 5 in Wt: 175 lbs Bra Size: 38 d HR: 77 bpm BP: 135/78 mmHg BSA: 1.87 m2 TID: 1.17 BMI: 29.1 History: palpitations Procedure: Patient exercised on Finesse protocol 10:15 minutes and sec, resting heart rate 77 bpm, resting blood pressure 135/78 mmHg, with exercise maximum heart rate achived was 166 bpm which is 104 % of the maximum predicted heart rate and blood pressure was 182/81 mmHg. Test was stopped due to fatigue..soa. Patient denied any complaint of chest pain. Patient has exercise capacity, achieved 12.8 METs of workload on treadmill, the blood pressure response to exercise was . Cardiac Stress and Resting SPECT Images: Cardiac Stress and Resting SPECT images were obtained using technetium 99m Myoview 29.7 mCi stress and 10.87 mCi at rest. Resting and stress imaging in supine and prone positions demonstrate no evidence of fixed or reversible perfusion defects. Gated imaging demonstrates normal global and regional LV systolic function. LVEF is calculated at 57%. Conclusion: No evidence of fixed or reversible perfusion defects. Gated imaging demonstrates normal global and regional LV systolic function. LVEF is calculated at 57%. Electronically signed by : Mariajose Padilla MD 04/26/2024 11:18:42
[2024-04-26] MEDS: ISOTOPE MYOVIEW (PER STUDY) 1 DOSE IV (10:52)
[2024-04-26] MEDS: SODIUM CHLORIDE 0.9% 10ML SYR (RAD ONLY) 10 ML IV ×2 (10:52)
== END 2024-04-26 23:59 | disposition home or self-care (01) ==
LOC: RAD 07:01
PROVIDERS: PCP Internal Medicine Adolescent Medicine; Visit Provider Internal Medicine
DX: R06.00 Dyspnea, unspecified (principal); I10 Essential (primary) hypertension; I25.10 Atherosclerotic heart disease of native coronary artery without angina pectoris; I49.3 Ventricular premature depolarization; R00.2 Palpitations; R94.31 Abnormal electrocardiogram [ECG] [EKG]; Z95.5 Presence of coronary angioplasty implant and graft
CPT/HCPCS: 78452; 93017; 93018; A9502

== ENCOUNTER 2024-06-04 08:08 | Outpatient (CLI) | payer OTHER, SELFPAY ==
--- NOTE | 2024-06-04 08:08 | US_ITS ---
PROCEDURE INFORMATION: Exam: US Soft Tissue Head and Neck, Thyroid Exam date and time: 06/04/2024 8:19 AM Age: 63 years old Clinical indication: Abnormal findings; Abnormal thyroid lab test; Additional info: Palps, HTN, thyroid disease TECHNIQUE: Imaging protocol: Real-time ultrasound scan of the neck with image documentation. Exam focused on the thyroid. COMPARISON: US THYROID 06/04/2024 8:19 AM FINDINGS: Right thyroid lobe: Right lobe: 2.2 x 1.1 x 0.9 cm. Heterogeneous echotexture. Atrophic. Left thyroid lobe: Left lobe: 3 x 1 x 0.9 cm. Heterogeneous. Atrophic. Isthmus: No nodules. IMPRESSION: Heterogeneous atrophic thyroid glands bilaterally. Correlate. Is there a history of thyroiditis?
== END 2024-06-04 23:59 | disposition home or self-care (01) ==
LOC: RAD 08:08
PROVIDERS: PCP Internal Medicine Adolescent Medicine; Visit Provider Physician Assistant
DX: I10 Essential (primary) hypertension (principal); E07.9 Disorder of thyroid, unspecified; R00.2 Palpitations
CPT/HCPCS: 76536

== ENCOUNTER 2024-07-22 13:27 | Outpatient (CLI) | payer OTHER, SELFPAY ==
--- NOTE | 2024-07-22 13:30 | MM_ITS ---
PROCEDURE INFORMATION: Exam: MG Bilateral Screening 3D Mammography Exam date and time: 07/22/2024 1:23 PM Age: 63 years old Clinical indication: Screening examination. A maternal aunt had breast cancer. TECHNIQUE: Imaging protocol: Bilateral Screening tomosynthesis and 2D mammography including computer-aided detection (CAD) when performed. COMPARISON: 1. MG MM DIG SCREENING MAMM BI W/CAD 07/11/2023 2:05 PM 2. MG MM DIG SCREENING MAMM BI W/CAD 06/15/2022 8:17 AM 3. MG MM DIG SCREENING MAMM BI W/CAD 05/26/2021 9:31 AM 4. MG MM DIG SCREENING MAMM BI W/CAD 03/11/2020 8:18 AM FINDINGS: MAMMOGRAPHY: Breast composition: The breasts are heterogeneously dense, which may obscure small masses. Mass: None. Architectural distortion: None. Calcifications: No suspicious calcifications. Asymmetric density: None. Skin thickening: None. Axillary adenopathy: None. IMPRESSION: No mammographic evidence of malignancy. Annual screening is recommended unless otherwise clinically indicated. ASSESSMENT: BI-RADS Category 1: Negative.
== END 2024-07-22 23:59 | disposition home or self-care (01) ==
LOC: RAD 13:27
PROVIDERS: PCP Internal Medicine Adolescent Medicine; Visit Provider Internal Medicine Adolescent Medicine
DX: Z12.31 Encounter for screening mammogram for malignant neoplasm of breast (principal)
CPT/HCPCS: 77063; 77067

== ENCOUNTER 2024-09-17 08:43 | Outpatient (CLI) | payer OTHER, SELFPAY ==
[2024-09-17 08:59] LABS: Basophils # 0.1 K/mm3 (0-0.2); Basophils % 1.1 % (0.1-2.0); Eosinophils # 0.5 K/mm3 (0.0-0.4); Eosinophils % 5.8 % (0.1-12.0); Hematocrit 38.7 % (37.0-47.0); Hemoglobin 12.2 g/dL (12.2-16.2); Lymphocytes # 2.9 K/mm3 (0.7-4.5); Lymphocytes % 35.7 % (10-50); Mean Corpuscular HGB Conc 31.5 g/dL (31.8-35.4); Mean Corpuscular Hemoglobin 27.9 pg (27.0-31.2); Mean Corpuscular Volume 88.6 fl (81-99); Mean Platelet Volume 9.6 fl (7.4-10.4); Monocytes # 0.6 K/mm3 (0.1-1.0); Monocytes % 6.9 % (1.7-9.3); Neutrophils # 4.1 K/mm3 (1.8-7.8); Neutrophils % 50.4 % (37.0-80.0); Platelet Count 272 K/mm3 (142-424); Red Blood Count 4.37 M/mm3 (4.20-5.40); White Blood Count 8.1 K/mm3 (4.8-10.8)
[2024-09-17 09:53] LABS: Albumin Level 4.7 g/dl (3.5-5.0)
[2024-09-17 09:54] LABS: Chloride 104 mmol/L (98-107); Potassium 4.2 mmoL/L (3.5-5.1); Sodium 141 mmol/L (136-145)
[2024-09-17 09:56] LABS: Alanine Aminotransferase 31 U/L (12-78); Anion Gap 14.2 mEq/L (5-15); Aspartate Amino Transferase 52 U/L (14-36); Bilirubin,Unconjugated 0.5 mg/dL (0.0-1.1); Blood Urea Nitrogen 13 mg/dl (7-17); Carbon Dioxide 27 mmol/L (22.0-30.0); Estimated Glomerular Filt Rate 73 ml/min (>60); GFR (African American) 88 ML/MIN (>60); Total Protein,Serum 7.3 g/dl (6.3-8.2)
[2024-09-17 09:57] LABS: Alkaline Phosphatase 79 U/L (38-126); Bilirubin,Indirect 0.4 mg/dL (0.0-0.9); Bilirubin,Total 0.4 mg/dl (0.2-1.3); Calcium 9.8 mg/dl (8.4-10.2); Chol/HDL Ratio 3.9 (1-3.5); Cholesterol 165 mg/dl (140-200); Glucose 91 mg/dl (74-100); HDL Cholesterol 42 mg/dl (40-60); Magnesium 2.1 mg/dl (1.6-2.3); Triglycerides 169 mg/dl (30-150); VLDL Cholesterol 34 mg/dL (0-40)
[2024-09-17 10:08] LABS: Direct LDL Cholesterol 82.75 mg/dL (100-129)
[2024-09-17 10:12] LABS: Free T4 (Free Thyroxine) 0.42 ng/dl (0.78-2.19)
== END 2024-09-17 23:59 | disposition home or self-care (01) ==
LOC: LAB 08:44
PROVIDERS: PCP Internal Medicine Adolescent Medicine; Visit Provider Physician Assistant
DX: R55 Syncope and collapse (principal)
CPT/HCPCS: 36415; 80048; 80061; 80076; 83735; 84439; 84443; 85025

== ENCOUNTER 2024-11-28 14:06 | Outpatient (CLI) | payer OTHER, SELFPAY ==
[2024-11-28 15:43] LABS: Free T4 (Free Thyroxine) 0.71 ng/dl (0.78-2.19)
[2024-11-28 15:45] LABS: 25-OH Vitamin D, Total 31.1 ng/mL (30-100)
== END 2024-11-28 23:59 | disposition home or self-care (01) ==
LOC: LAB 14:07
PROVIDERS: PCP Nurse Practitioner Family; Visit Provider Nurse Practitioner Family
DX: E03.9 Hypothyroidism, unspecified (principal); Z78.0 Asymptomatic menopausal state; M85.80 Other specified disorders of bone density and structure, unspecified site
CPT/HCPCS: 36415; 82306; 84439; 84443

== ENCOUNTER 2025-01-23 07:43 | Outpatient (CLI) | payer OTHER, SELFPAY ==
--- OUTSIDE RECORDS SUMMARY | 2025-01-23 07:44 | XMS_ITS | Clinical Summary ---
Author Organization Healthcare Address [address] [place] [address] Care Team Providers Care Semiconductor Manufacturing Technician Name Role Phone Bharat Clinton MD Primary Care Provider + [phone] Family History Medical History Relation Name Comments Heart attack Father Arthritis Mother Hypertension Mother Relation Name Status Comments Father Mother Social History Tobacco Use Types Packs/Day Years Used Date Smoking Tobacco: Former Comments Unknown Sex and Gender Information Value Date Recorded Sex Assigned at Not on file Legal Sex Female 8:24 PM EDT Gender Identity Not on file Sexual Orientation Not on file Last Filed Vital Signs Vital Sign Reading Time Taken Comments Blood Pressure - - Pulse - - Temperature - - Respiratory Rate - - Oxygen Saturation - - Inhaled Oxygen Concentration - - Weight 69.8 kg (153 lb 15.9 oz) 12/10/2013 9:56 AM EDT Height 167.6 cm (5' 6 ) 12/10/2013 9:56 AM EDT Body Mass Index 24.85 12/10/2013 9:56 AM EDT Plan of Treatment Health Maintenance Due Date Last Done Comments [facility]-Depression Screening 1962 [facility]-/Child/Adol SDOH Screenings 1962 [facility]- SDOH Screenings 1980 [facility]-Adult SDOH Screenings 1980 [facility]-DTaP,Tdap,and Td Vaccine s (1 - Tdap) 1981 [facility]-Pap Smear 1983 [facility]-Cervical Cancer Screening 1992 [facility]-HPV/Cotest 1992 CT Colonography 2007 Colonoscopy 2007 FIT-DNA 2007 FIT 2007 FOBT 2007 Sigmoidoscopy 2007 [facility]-Colorectal Cancer Screening 2007 [facility]-Pneumococcal Vaccine: 50 + Years (1 of 1 - PCV) 2012 [facility]-Zoster Vaccines (1 of 2) 2012 [id number]-78 Vaccine (1 - 20 24-25 season) 2024 [facility]-Influenza Vaccine (Seaso n Ended) 2025 [facility]-RSV Vaccine: 60+ Years o r (1 - 1-dose 75+ series) 2037 HPV Vaccines Aged Out No longer eligi ble based on patient's age to complete this topic [facility]-HIB Vaccines Aged Out No longer e ligible based on patient's age to complete this topic [facility]-Hepatitis A Vaccines Aged Out No longer eligible based on patient's age to complete this topic [facility]-IPV Vaccines Aged Out No longer e ligible based on patient's age to complete this topic [facility]-Rotavirus Vaccines Aged Out No lo nger eligible based on patient's age to complete this topic Care Teams Semiconductor Manufacturing Technician Relationship Specialty Start Date End Date Bharat Clinton MD [address] [place] [id number] PCP - General 12/25/20
[2025-01-23 08:15] LABS: Basophils # 0.1 K/mm3 (0-0.2); Basophils % 0.9 % (0.1-2.0); Eosinophils # 0.4 Kmm3 (0.0-0.4); Eosinophils % 4.3 % (0.1-12.0); Hematocrit 35.7 % (37.0-47.0); Hemoglobin 11.1 g/dL (12.2-16.2); Immature Granulocytes # 0.02 10^3uL; Immature Granulocytes % 0.2 %; Lymphocytes # 3.4 K/mm3 (0.7-4.5); Mean Corpuscular HGB Conc 31.1 g/dL (31.8-35.4); Mean Corpuscular Hemoglobin 26.4 pg (27.0-31.2); Mean Platelet Volume 10.4 fl (7.4-10.4); Monocytes # 0.6 K/mm3 (0.1-1.0); Monocytes % 6.8 % (1.7-9.3); Neutrophils # 4.2 K/mm3 (1.8-7.8); Neutrophils % 48.8 % (37.0-80.0); Nucleated Red Blood Cells # 0 10^3/uL; Nucleated Red Blood Cells % 0 %; Platelet Count 296 K/mm3 (142-424); Red Cell Distribution Width 13.9 % (11.5-17.5); Red Cell Distribution Width-SD 43.1 fL; White Blood Count 8.6 K/mm3 (4.8-10.8)
[2025-01-23 08:42] LABS: Alanine Aminotransferase 19 U/L (12-78); Albumin Level 4.3 g/dl (3.5-5.0); Alkaline Phosphatase 72 U/L (38-126); Aspartate Amino Transferase 30 U/L (14-36); Bilirubin,Direct 0.1 mg/dl (0.0-0.4); Bilirubin,Indirect 0.6 mg/dL (0.0-0.9); Bilirubin,Total 0.7 mg/dl (0.2-1.3); Bilirubin,Unconjugated 0.6 mg/dL (0.0-1.1); Chol/HDL Ratio 3.4 (1-3.5); Cholesterol 136 mg/dl (140-200); HDL Cholesterol 40 mg/dl (40-60); Magnesium 1.8 mg/dl (1.6-2.3); Total Protein,Serum 6.8 g/dl (6.3-8.2); Triglycerides 116 mg/dl (30-150); VLDL Cholesterol 23 mg/dL (0-40)
[2025-01-23 08:59] LABS: Free T4 (Free Thyroxine) 1.44 ng/dl (0.78-2.19)
[2025-01-23 09:01] LABS: Free Thyroxine Index 3.2 ug/dL (5.93-13.13); T4 (Thyroxine) 9.1 ug/dl (5.53-11.0); Triiodothryronine (T3) Uptake 35 % (23.5-40.5)
[2025-01-24 12:18] LABS: Anti-Centromere B Antibodies <0.2 AI (0.0-0.9); Anti-DNA (DS) Ab Qn 7 IU/mL (0-9); Anti-Jo-1 <0.2 AI (0.0-0.9); Anti-Smith Antibody <0.2 AI (0.0-0.9); Antichromatin Antibodies <0.2 AI (0.0-0.9); Antiscleroderma-70 Antibodies <0.2 AI (0.0-0.9); RNP Antibodies <0.2 AI (0.0-0.9); Sjogren's Anti-SS-A 0.2 AI (0.0-0.9); Sjogren's Anti-SS-B <0.2 AI (0.0-0.9)
== END 2025-01-23 23:59 | disposition home or self-care (01) ==
LOC: LAB 07:43
PROVIDERS: PCP Internal Medicine Adolescent Medicine; Visit Provider Physician Assistant
DX: I11.9 Hypertensive heart disease without heart failure (principal); I49.3 Ventricular premature depolarization; R00.2 Palpitations; E07.9 Disorder of thyroid, unspecified
CPT/HCPCS: 36415; 80061; 80076; 83735; 84436; 84439; 84443; 84479; 85025; 86225; 86235; 93270

== ENCOUNTER 2025-03-18 08:41 | Outpatient (CLI) | payer OTHER, SELFPAY ==
--- OUTSIDE RECORDS SUMMARY | 2025-03-18 08:43 | XMS_ITS | Clinical Summary ---
Author Organization Healthcare Address [address] [place] [address] Care Team Providers Care Insulation Cutter Name Role Phone Bharat Clinton MD Primary Care Provider + [phone] Family History Medical History Relation Name Comments [...] 2012 [facility]-Zoster Vaccines (1 of 2) 2012 [id number]-[id number]-13 Vaccine (1 - 20 24-25 season) 2024 [facility]-Influenza Vaccine (#1) 2025 [facility]-RSV Vaccine: 60+ Years o r [...] age to complete this topic Care Teams Insulation Cutter Relationship Specialty Start Date End Date Bharat Clinton MD [address] [place] [id number] PCP - General 12/25/20
[2025-03-18 09:45] LABS: Anion Gap 7.9 mEq/L (5-15); Blood Urea Nitrogen 11 mg/dl (7-17); Calcium 10.0 mg/dl (8.4-10.2); Carbon Dioxide 29 mmol/L (22.0-30.0); Chloride 107 mmol/L (98-107); Creatinine,Serum 0.70 mg/dl (0.52-1.04); Estimated Glomerular Filt Rate 85 ml/min (>60); GFR (African American) 103 ML/MIN (>60); Glucose 100 mg/dl (74-100); Potassium 3.9 mmoL/L (3.5-5.1); Sodium 140 mmol/L (136-145)
[2025-03-18 10:04] LABS: Free Thyroxine Index 3.6 ug/dL (5.93-13.13); T4 (Thyroxine) 9.7 ug/dl (5.53-11.0); Triiodothryronine (T3) Uptake 37 % (23.5-40.5)
[2025-03-18 10:17] LABS: Thyroid Stimulating Hormone 1.73 uIU/mL (0.465-4.68)
== END 2025-03-18 23:59 | disposition home or self-care (01) ==
LOC: LAB 08:41
PROVIDERS: PCP Internal Medicine Adolescent Medicine; Visit Provider Physician Assistant
DX: I25.10 Atherosclerotic heart disease of native coronary artery without angina pectoris (principal); I49.3 Ventricular premature depolarization; I10 Essential (primary) hypertension; E78.2 Mixed hyperlipidemia; E07.9 Disorder of thyroid, unspecified
CPT/HCPCS: 36415; 80048; 84436; 84443; 84479

== ENCOUNTER 2025-05-09 08:01 | Outpatient (CLI) | payer OTHER, SELFPAY ==
--- OUTSIDE RECORDS SUMMARY | 2025-05-09 08:33 | XMS_ITS | Clinical Summary ---
Author Organization Healthcare Address [address] [place] [address] Care Team Providers Care Production Department Supervisor Name Role Phone Bharat Clinton MD Primary Care Provider + [phone] Family History Medical History Relation Name Comments [...] 2012 [facility]-Zoster Vaccines (1 of 2) 2012 [id number]-[id number]-27 Vaccine (1 - 20 24-25 season) 2025 [facility]-Influenza Vaccine (#1) 2025 [facility]-RSV Vaccine: 60+ [...] age to complete this topic Care Teams Production Department Supervisor Relationship Specialty Start Date End Date Bharat Clinton MD [address] [place] [id number] PCP - General 12/25/20
== END 2025-05-09 23:59 | disposition home or self-care (01) ==
LOC: RT 08:02
PROVIDERS: PCP Internal Medicine Adolescent Medicine; Visit Provider Physician Assistant
DX: I49.1 Atrial premature depolarization (principal); I49.3 Ventricular premature depolarization
CPT/HCPCS: 93270

== ENCOUNTER 2025-06-24 08:41 | Outpatient (CLI) | payer OTHER, SELFPAY ==
--- OUTSIDE RECORDS SUMMARY | 2025-06-24 08:46 | XMS_ITS ---
Author Organization Unknown ENCOUNTERS Encounter Performer Location Date Diagnosis Diagnosis Status Emergency [facility] [address] [place] [address] [id number] [facility] Pre Admit [facility] [address] [place] [address] [id number] Emergency [facility] [address] [place] [address] [id number] [facility] *Note: Encounters from your own facility or health system may be excluded. Allergies, Adverse Reactions, Alerts Allergen Type Severity Identification Date levofloxacin drug allergy 0 [id number] Medications Name Date Quantity Days Supplied BANNER Number
--- OUTSIDE RECORDS SUMMARY | 2025-06-24 08:46 | XMS_ITS | Clinical Summary ---
Author Organization Healthcare Address [address] [place] [address] Care Team Providers Care Welder Tack Name Role Phone Bharat Clinton MD Primary Care Provider + [phone] Family History Medical History Relation Name Comments [...] Date Last Done Comments [facility]-Depression Screening 1962 [facility]-Infant/Child/Adol SDOH Screenings 1962 [facility]- SDOH Screenings 1980 [facility]-Adult SDOH Screenings 1980 [facility]-DTaP,Tdap,and Td Vaccine s (1 - Tdap) 1981 [facility]-Pap Smear 1983 [facility]-Cervical Cancer Screening 1992 [facility]-HPV/Cotest 1992 CT Colonography 2007 Colonoscopy 2007 FIT-DNA 2007 FIT 2007 FOBT 2007 Sigmoidoscopy 2007 [facility]-Colorectal Cancer Screening 2007 [facility]-Pneumococcal Vaccine: 50 + Years (1 of 1 - PCV) 2012 [facility]-Zoster Vaccines (1 of 2) 2012 [id number] Vaccine (1 - 20 24-25 season) 2025 [...] age to complete this topic Care Teams Welder Tack Relationship Specialty Start Date End Date Bharat Clinton MD [address] [place] [id number] PCP - General 12/25/20
--- NOTE | 2025-06-24 09:15 | XR_ITS ---
FINAL REPORT CLINICAL HISTORY: follow up for osteoporosis prior 2021 COMPARISON: 06/15/2022 FINDINGS: Using L1-4, the bone mineral density of the spine is 1.043 g/cm2, corresponding to T-score of 0.0. The bone mineral density change versus baseline is -2.6%. Using the left hip, the bone mineral density of the femoral neck is 0.752 g/cm2, corresponding to a T-score of -0.9. The bone mineral density change versus baseline is 17.1% Using the right hip, the bone mineral density of the femoral neck is 0.774 g/cm2, corresponding to a T-score of -0.7. The bone mineral density change versus baseline is 2.6%. NOTE: T-score: Standard deviation compared with peak bone mass of young adult mean. *Following the recommendations of the International Society of Bone densitometry, classification of hip BMD is based on the lower of two T-scores; total hip or femoral neck. IMPRESSION: 1. Normal bone mineral density of the lumbar spine and bilateral femoral necks. Reviewed, Interpreted and Dictated by Ish Reed MD Transcribed by Marcy White Authenticated and [facility]
[2025-06-24 10:04] LABS: Albumin Level 4.3 g/dl (3.5-5.0); Anion Gap 11.2 mEq/L (5-15); Blood Urea Nitrogen 16 mg/dl (7-17); Calcium 9.9 mg/dl (8.4-10.2); Carbon Dioxide 26 mmol/L (22.0-30.0); Chloride 105 mmol/L (98-107); Creatinine,Serum 0.80 mg/dl (0.52-1.04); Estimated Glomerular Filt Rate 73 ml/min (>60); GFR (African American) 88 ML/MIN (>60); Glucose 98 mg/dl (74-100); Phosphorous 3.9 mg/dl (2.5-4.5); Potassium 4.2 mmoL/L (3.5-5.1); Sodium 138 mmol/L (136-145)
[2025-06-24 10:21] LABS: 25-OH Vitamin D, Total 46.1 ng/mL (30-100); Free T4 (Free Thyroxine) 1.37 ng/dl (0.78-2.19)
[2025-06-24 10:33] LABS: Thyroid Stimulating Hormone 1.75 uIU/mL (0.465-4.68)
[2025-06-25 15:12] LABS: Albumin 4.0 g/dL (2.9-4.4); Alpha-1-Globulin 0.2 g/dL (0.0-0.4); Alpha-2-Globulin 0.7 g/dL (0.4-1.0); Gamma Globulin 1.0 g/dL (0.4-1.8)
== END 2025-06-24 23:59 | disposition home or self-care (01) ==
LOC: RAD 08:41
PROVIDERS: PCP Internal Medicine Adolescent Medicine; Visit Provider Student in an Organized Health Care Education/Training Program
DX: M81.0 Age-related osteoporosis without current pathological fracture (principal); M85.80 Other specified disorders of bone density and structure, unspecified site
CPT/HCPCS: 36415; 77080; 80069; 82306; 82523; 83970; 84080; 84155; 84165; 84439; 84443

== ENCOUNTER 2025-07-29 15:50 | Outpatient (CLI) | payer OTHER, SELFPAY ==
--- NOTE | 2025-07-29 15:51 | MM_ITS ---
PROCEDURE INFORMATION: Exam: MG Bilateral Screening 3D Mammography Exam date and time: 07/29/2025 3:51 PM Age: 65 years old Clinical indication: Screening examination TECHNIQUE: Imaging protocol: Bilateral Screening tomosynthesis and 2D mammography including computer-aided detection (CAD) when performed. COMPARISON: MG MM DIG SCREENING MAMM BI W/CAD 07/22/2024 1:23 PM FINDINGS: MAMMOGRAPHY: Breast composition: The breasts are heterogeneously dense, which may obscure small masses. Mass: No suspicious masses. Architectural distortion: None. Calcifications: No suspicious calcifications. Asymmetric density: None. Skin thickening: None. Axillary adenopathy: None. IMPRESSION: No mammographic evidence of malignancy. Annual screening is recommended unless otherwise clinically indicated. ASSESSMENT: BI-RADS Category 1: Negative.
--- OUTSIDE RECORDS SUMMARY | 2025-07-29 15:52 | XMS_ITS | Clinical Summary ---
Author Organization Healthcare Address [address] [place] [address] Care Team Providers Care Wind Farm Support Specialist Name Role Phone Bharat Clinton MD Primary Care Provider + [phone] Family History Medical History Relation Name Comments [...] 2012 [facility]-Zoster Vaccines (1 of 2) 2012 [id number] Vaccine ( - 25-26 season) 2025 [facility]-Influenza Vaccine (#1) 2025 [facility]-RSV Vaccine: 60+ Years o r (1 - 1-dose 75+ series) 2037 HPV Vaccines (No Doses Required) Completed [facility]-HIB Vaccines Aged Out No longer e [...] age to complete this topic Care Teams Wind Farm Support Specialist Relationship Specialty Start Date End Date Bharat Clinton MD [address] [place] [id number] PCP - General 12/25/20
== END 2025-07-29 23:59 | disposition home or self-care (01) ==
LOC: RAD 15:50
PROVIDERS: PCP Internal Medicine Adolescent Medicine; Visit Provider Nurse Practitioner Family
DX: Z12.31 Encounter for screening mammogram for malignant neoplasm of breast (principal); R92.333 Mammographic heterogeneous density, bilateral breasts
CPT/HCPCS: 77063; 77067